=== PATIENT | female | born 1980 | race Caucasian/White ===

== ENCOUNTER 2018-08-31 19:52 | Emergency (ER) | payer MEDICARE, MEDICAID ==
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
[2018-08-31 20:52] LABS: ANION GAP 16.9
[2018-08-31] MEDS ORDERED: Sulfamethoxazole/Trimethoprim 800-160 MG Tab PO ONE (21:07)
== END 2018-08-31 21:14 | disposition home or self-care (01) ==
LOC: DL.ED 19:52
DX: N39.0 Urinary tract infection, site not specified (principal); I12.9 Hypertensive chronic kidney disease with stage 1 through stage 4 chronic kidney disease, or unspecified chronic kidney disease; N18.4 Chronic kidney disease, stage 4 (severe); F32.9 Major depressive disorder, single episode, unspecified; Z88.8 Allergy status to other drugs, medicaments and biological substances; Z91.040 Latex allergy status; Z79.899 Other long term (current) drug therapy
CPT/HCPCS: 36415; 80053; 81001; 81025; 83605; 85025; 87040; 87086; 99284; A9270; 87088; 87186

== ENCOUNTER 2018-10-08 17:39 | Inpatient (IN) | payer MEDICARE, MEDICAID ==
[2018-10-08] MEDS ORDERED: Sodium Chloride 0.9% 1,000 ML IV ONE (19:29)
[2018-10-08 19:44] LABS: ANION GAP 17.2
[2018-10-08] MEDS ORDERED: fentaNYL 100 MCG/2 ML SDV IVPUSH ONE (21:11)
[2018-10-08] MEDS ORDERED: Ondansetron 4 MG/2 ML SDV IV ONE (21:11)
[2018-10-08] MEDS ORDERED: Piperacillin/Tazobactam 3.375 GM in Sodium Chloride 0.9% 100 ML IV ONE (22:04)
[2018-10-08] MEDS: Iopamidol 612 MG/ML 100 ML Bottle IVPUSH ONE ×2 (22:13→22:22)
[2018-10-08] MEDS ORDERED: Acetaminophen 325 MG Tab PO PRN (22:42)
[2018-10-08] MEDS ORDERED: Acetaminophen/oxyCODONE 325-5 MG Tab PO PRN (22:42)
[2018-10-08] MEDS ORDERED: Ondansetron 4 MG/2 ML SDV IVPUSH PRN (22:42)
[2018-10-08] MEDS ORDERED: DIPHENHYDRAMINE 25 MG PO PRN (22:48)
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
[2018-10-08] MEDS ORDERED: Piperacillin/Tazobactam 3.375 GM in Sodium Chloride 0.9% 100 ML IV SCH (23:00)
[2018-10-08] MEDS ORDERED: diphenhydrAMINE 25 MG Tab PO PRN (23:15)
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
[2018-10-09] MEDS ORDERED: Piperacillin/Tazobactam 4.5 GM Vial ONE (03:26)
[2018-10-09] MEDS: Sodium Chloride 0.9% 1,000 ML IV SCH ×2 (03:55→13:37)
[2018-10-09] MEDS: Piperacillin/Tazobactam 2.25 GM in Sodium Chloride 0.9% 50 ML IV SCH ×4 (03:56→20:50)
[2018-10-09] MEDS: Heparin Sodium 5,000 Units/ML Vial SUBCUT SCH ×3 (05:46→21:17)
[2018-10-09 07:01] LABS: ANION GAP 14.8
[2018-10-09] MEDS: Calcitriol 0.25 MCG Cap PO SCH (08:40)
[2018-10-09] MEDS: Sodium Bicarbonate 650 MG Tab PO SCH ×2 (08:40→21:10)
[2018-10-09] MEDS: amLODIPine 5 MG Tab PO SCH (08:40)
[2018-10-09] MEDS: Docusate Sodium 100 MG Cap PO SCH (08:40)
[2018-10-09] MEDS: DULoxetine 30 MG Cap PO SCH (08:41)
[2018-10-09] MEDS: METHYLPHENIDATE 10 MG PO SCH ×3 (08:46→21:16)
--- NOTE | 2018-10-09 09:29 | PCM.PN ---
- General Info Date of Service: 10/09/18 Subjective Update: patient reports that back pain has improved. She inquired whether this pain is related to sciatica, I told her that it wouldn't be expected to improve with antibiotics had it been sciatica pain.patient denied any nausea or vomiting, difficulty breathing. - Review of Systems General: Reports: No Symptoms Pulmonary: Reports: No Symptoms Cardiovascular: Reports: No Symptoms Gastrointestinal: Reports: No Symptoms Genitourinary: Reports: Flank Pain Skin: Reports: No Symptoms Psychiatric: Reports: No Symptoms - Patient Data Vitals - Most Recent: Last Vital Signs Temp 36.9 C 10/09/18 07:20 Pulse 65 10/09/18 07:20 Resp 16 10/09/18 07:20 BP 121/74 10/09/18 08:40 Pulse Ox 99 10/09/18 07:20 Weight - Most Recent: 69.672 kg I&O - Last 24 Hours: Intake & Output 10/08/18 10/09/18 10/09/18 22:59 06:59 14:59 Intake Total 1161 Output Total 750 Balance 411 Lab Results Last 24 Hours: Laboratory Results - last 24 hr 10/08/18 10/08/18 10/08/18 Range/Units 19:05 19:05 19:05 WBC 13.2 H (5.0-10.0) 10^3/uL RBC 4.61 (4.2-5.4) 10^6/uL Hgb 13.9 (12.0-16.0) g/dL Hct 41.3 (37.0-47.0) % MCV 89.6 (80-100) fL MCH 30.2 (27.0-34.0) pg MCHC 33.7 (33.0-35.0) g/dL Plt Count 180 (150-450) 10^3/uL Neut % (Auto) 75.7 H (42.2-75.2) % Lymph % (Auto) 16.7 L (20.5-50.1) % [place] % (Auto) 7.4 (2-8) % Eos % (Auto) 0.1 L (1.0-3.0) % Baso % (Auto) 0.1 (0.0-1.0) % Sodium 133 L (135-145) mmol/L Potassium 4.2 (3.6-5.0) mmol/L Chloride 98 L (101-111) mmol/L Carbon Dioxide 22.0 (21.0-31.0) mmol/L Anion Gap 17.2 BUN 37 H (7-18) mg/dL Creatinine 1.5 H (0.6-1.3) mg/dL Est Cr Clr Drug Dosing 39.12 mL/min Estimated GFR (MDRD) 39 BUN/Creatinine Ratio 24.66 Glucose 81 (74-105) mg/dL Lactic Acid 0.6 (0.5-2.2) mmol/L Calcium 9.4 (8.4-10.2) mg/dl Phosphorus (2.5-4.6) mg/dL Magnesium (1.8-2.5) mg/dL Total Bilirubin 1.1 H (0.2-1.0) mg/dL AST 26 (10-42) IU/L ALT 21 (10-60) IU/L Alkaline Phosphatase 41 L (42-121) IU/L Total Protein 7.8 (6.7-8.2) g/dl Albumin 3.9 (3.2-5.5) g/dl Globulin 3.9 Albumin/Globulin Ratio 1.00 Amylase 47 (28-100) U/L Lipase 36 (22-51) U/L Urine Color (YELLOW) Urine Appearance (CLEAR) Urine pH (5.0-9.0) Ur Specific [place] (1.005-1.030) Urine Protein (NEGATIVE) Urine Glucose (UA) (NEGATIVE) Urine Ketones (NEGATIVE) Urine Occult Blood (NEGATIVE) Urine Nitrite (NEGATIVE) Urine Bilirubin (NEGATIVE) Urine Urobilinogen (0.2-1.0) mg/dL Ur Leukocyte Esterase (NEGATIVE) Urine RBC /HPF Urine WBC (0-5/HPF) /HPF Ur Epithelial Cells /HPF Urine Bacteria (0-FEW/HPF) /HPF 10/08/18 10/09/18 10/09/18 Range/Units 21:58 06:25 06:25 WBC 8.3 (5.0-10.0) 10^3/uL RBC 3.87 L (4.2-5.4) 10^6/uL Hgb 11.7 L D (12.0-16.0) g/dL Hct 35.4 L (37.0-47.0) % MCV 91.5 (80-100) fL MCH 30.2 (27.0-34.0) pg MCHC 33.1 (33.0-35.0) g/dL Plt Count 142 L (150-450) 10^3/uL Neut % (Auto) 55.6 (42.2-75.2) % Lymph % (Auto) 31.8 (20.5-50.1) % [place] % (Auto) 12.1 H (2-8) % Eos % (Auto) 0.4 L (1.0-3.0) % Baso % (Auto) 0.1 (0.0-1.0) % Sodium 135 (135-145) mmol/L Potassium 3.8 (3.6-5.0) mmol/L Chloride 106 (101-111) mmol/L Carbon Dioxide 18.0 L (21.0-31.0) mmol/L Anion Gap 14.8 BUN 39 H (7-18) mg/dL Creatinine 1.6 H (0.6-1.3) mg/dL Est Cr Clr Drug Dosing 36.68 mL/min Estimated GFR (MDRD) 36 BUN/Creatinine Ratio 24.37 Glucose 111 H (74-105) mg/dL Lactic Acid (0.5-2.2) mmol/L Calcium 8.4 (8.4-10.2) mg/dl Phosphorus 3.3 (2.5-4.6) mg/dL Magnesium 1.8 (1.8-2.5) mg/dL Total Bilirubin 0.4 (0.2-1.0) mg/dL AST 18 (10-42) IU/L ALT 16 (10-60) IU/L Alkaline Phosphatase 35 L (42-121) IU/L Total Protein 6.3 L (6.7-8.2) g/dl Albumin 3.1 L (3.2-5.5) g/dl Globulin 3.2 Albumin/Globulin Ratio 0.97 Amylase (28-100) U/L Lipase (22-51) U/L Urine Color Yellow (YELLOW) Urine Appearance Slightly cloudy (CLEAR) Urine pH 7.0 (5.0-9.0) Ur Specific [place] 1.015 (1.005-1.030) Urine Protein 100 H (NEGATIVE) Urine Glucose (UA) Negative (NEGATIVE) Urine Ketones Trace H (NEGATIVE) Urine Occult Blood Large H (NEGATIVE) Urine Nitrite Negative (NEGATIVE) Urine Bilirubin Small H (NEGATIVE) Urine Urobilinogen 0.2 (0.2-1.0) mg/dL Ur Leukocyte Esterase Small H (NEGATIVE) Urine RBC 10-20 H /HPF Urine WBC 50-75 H (0-5/HPF) /HPF Ur Epithelial Cells Moderate H /HPF Urine Bacteria Many H (0-FEW/HPF) /HPF Kervin Results Last 24 Hours: Microbiology 10/08/18 19:05 Anaerobic Blood Culture - Final Blood - Venous Med Orders - Current: Current Medications Acetaminophen (Tylenol) 650 mg PO Q4H PRN PRN Reason: Pain (Mild 1-3)/fever Amlodipine Besylate (Norvasc) 10 mg PO DAILY [facility] Last Admin: 10/09/18 08:40 Dose: 10 mg Calcitriol (Rocaltrol) 0.25 mcg PO DAILY [facility] Last Admin: 10/09/18 08:40 Dose: 0.25 mcg Diphenhydramine HCl (Benadryl) 25 mg PO Q8H PRN PRN Reason: Rash Divalproex Sodium (Depakote Er) 1,250 mg PO BEDTIME [facility] Docusate Sodium (Colace) 100 mg PO DAILY [facility] Last Admin: 10/09/18 08:40 Dose: 100 mg Duloxetine HCl (Cymbalta) 60 mg PO DAILY [facility] Last Admin: 10/09/18 08:41 Dose: 60 mg Ferrous Sulfate (Ferrous Sulfate) 325 mg PO BEDTIME [facility] Heparin Sodium (Porcine) (Heparin Sodium) 5,000 units SUBCUT Q8HR [facility] Last Admin: 10/09/18 05:46 Dose: 5,000 units Sodium Chloride (Normal Saline) 1,000 mls @ 125 mls/hr IV ASDIRECTED [facility] Last Admin: 10/09/18 03:55 Dose: 125 mls/hr Piperacillin Sod/Tazobactam (Sod 2.25 gm/ Sodium Chloride) 50 mls @ 100 mls/hr IV Q6H [facility] Last Admin: 10/09/18 03:56 Dose: 100 mls/hr Ondansetron HCl (Zofran) 4 mg IVPUSH Q4H PRN PRN Reason: Nausea/Vomiting Oxycodone/Acetaminophen (Percocet 325-5 Mg) 1 tab PO Q6H PRN PRN Reason: Pain (moderate 4-6) Patient's Own Medication Methylphenidate 10 Mg 1 each PO TID [facility] Last Admin: 10/09/18 08:46 Dose: 1 each Sodium Bicarbonate (Sodium Bicarbonate) 650 mg PO BID [facility] Last Admin: 10/09/18 08:40 Dose: 650 mg Discontinued Medications Fentanyl (Sublimaze) 50 mcg IVPUSH ONETIME ONE Stop: 10/08/18 21:12 Last Admin: 10/08/18 21:17 Dose: 50 mcg Sodium Chloride (Normal Saline) 1,000 mls @ 150 mls/hr IV .BOLUS ONE Stop: 10/09/18 02:08 Last Admin: 10/08/18 19:47 Dose: 150 mls/hr Piperacillin Sod/Tazobactam (Sod 3.375 gm/ Sodium Chloride) 100 mls @ 200 mls/ hr IV ONETIME ONE Stop: 10/08/18 22:33 Last Admin: 10/08/18 22:16 Dose: 200 mls/hr Piperacillin Sod/Tazobactam (Sod 3.375 gm/ Sodium Chloride) 100 mls @ 200 mls/ hr IV Q6H [facility] Last Admin: 10/09/18 03:06 Dose: Not Given Iopamidol (Isovue-300 (61%)) 100 ml IVPUSH ONETIME ONE Stop: 10/08/18 22:07 Last Admin: 10/08/18 22:22 Dose: 75 ml Non-Formulary Medication (Diphenhydramine [Benadryl]) 25 mg PO ASDIRECTED PRN PRN Reason: Rash Ondansetron HCl (Zofran) 4 mg IV ONETIME ONE Stop: 10/08/18 21:12 Last Admin: 10/08/18 22:16 Dose: 4 mg Piperacillin Sod/Tazobactam Sod (Zosyn) Confirm Administered Dose 4.5 gm .ROUTE .STK-MED ONE Stop: 10/09/18 03:27 Last Admin: 10/09/18 03:56 Dose: Not Given - Problem List Review Problem List Initiated/Reviewed/Updated: Yes - My Orders Last 24 Hours: My Active Orders 10/08/18 22:42 Patient Status [ADT] Routine Oxygen Therapy [RC] PRN Up With Assistance [RC] ASDIRECTED VTE/DVT Education [RC] PER UNIT ROUTINE Vital Signs [RC] Q4H OT Evaluation and Treatment [CONS] Routine PT Evaluation and Treatment [CONS] Routine Acetaminophen [Tylenol] 650 mg PO Q4H PRN Acetaminophen/oxyCODONE [Percocet 325-5 MG] 1 tab PO Q6H PRN Ondansetron [Zofran] 4 mg IVPUSH Q4H PRN Resuscitation Status Routine 10/08/18 22:43 Intake and Output [RC] QSHIFT 10/08/18 23:00 Sodium Chloride 0.9% [Normal Saline] 1,000 ml IV ASDIRECTED 10/08/18 23:15 diphenhydrAMINE [Benadryl] 25 mg PO Q8H PRN 10/09/18 04:00 Piperacillin/Tazobactam [Zosyn] 2.25 gm Sodium Chloride 0.9% [Normal Saline] 50 ml IV Q6H 10/09/18 06:00 Heparin Sodium 5,000 units SUBCUT Q8HR 10/09/18 09:00 Calcitriol [Rocaltrol] 0.25 mcg PO DAILY DULoxetine [Cymbalta] 60 mg PO DAILY Docusate Sodium [Colace] 100 mg PO DAILY Patient's Own Medication [Ptom] 1 each PO TID Sodium Bicarbonate 650 mg PO BID amLODIPine [Norvasc] 10 mg PO DAILY 10/09/18 21:00 Divalproex Sodium [Depakote ER] 1,250 mg PO BEDTIME Ferrous Sulfate 325 mg PO BEDTIME 10/09/18 Breakfast Regular Diet [DIET] - Plan Plan:: Acute pyelonephritis Patient has a recurrent history of recurrent acute pyelonephritis She presented with symptoms concerning for acute pyelonephritis Urine cultures, blood cultures obtained continue patient on zosyn follow up culture results Secondary hyperparathyroidism continue calcitriol CKD the stage III will hydrate following IV contrast will monitor UOP, serum creatinine Hypertension continue amlodipine DVT prophylaxis heparin
[2018-10-09] MEDS ORDERED: Ferrous Sulfate 325 MG Tab PO SCH (21:00)
[2018-10-09] MEDS ORDERED: Divalproex Sodium 250 MG Tab.ER PO SCH (21:00)
[2018-10-10] MEDS: Piperacillin/Tazobactam 2.25 GM in Sodium Chloride 0.9% 50 ML IV SCH ×3 (00:27→11:38)
[2018-10-10] MEDS: Sodium Chloride 0.9% 1,000 ML IV SCH (02:20)
[2018-10-10] MEDS: Heparin Sodium 5,000 Units/ML Vial SUBCUT SCH (05:26)
[2018-10-10] MEDS: METHYLPHENIDATE 10 MG PO SCH (08:55)
[2018-10-10] MEDS: DULoxetine 30 MG Cap PO SCH (08:56)
[2018-10-10] MEDS: Docusate Sodium 100 MG Cap PO SCH (08:56)
[2018-10-10] MEDS: Calcitriol 0.25 MCG Cap PO SCH (08:56)
[2018-10-10] MEDS: amLODIPine 5 MG Tab PO SCH (08:56)
[2018-10-10] MEDS: Sodium Bicarbonate 650 MG Tab PO SCH (08:56)
[2018-10-10 10:08] LABS: ANION GAP 10.2
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
== END 2018-10-10 13:35 | DRG 394 ==
LOC: DL.ED 17:39 → DL.MS 22:37 → UNDOADMIN 22:37 → DL.MS 22:42
PROVIDERS: ADMIT Internal Medicine; ATTEND Internal Medicine
DX: K43.5 Parastomal hernia without obstruction or gangrene (principal); G82.20 Paraplegia, unspecified; N25.81 Secondary hyperparathyroidism of renal origin; N18.4 Chronic kidney disease, stage 4 (severe); E86.0 Dehydration; K59.09 Other constipation; F32.9 Major depressive disorder, single episode, unspecified; M16.11 Unilateral primary osteoarthritis, right hip; I12.9 Hypertensive chronic kidney disease with stage 1 through stage 4 chronic kidney disease, or unspecified chronic kidney disease; Z96.0 Presence of urogenital implants; Z88.5 Allergy status to narcotic agent; Z91.040 Latex allergy status; Z88.8 Allergy status to other drugs, medicaments and biological substances; Z91.018 Allergy to other foods; Z79.899 Other long term (current) drug therapy; Z90.89 Acquired absence of other organs
CPT/HCPCS: 36415; 74178; 80048; 80053; 81001; 82150; 83605; 83690; 83735; 84100; 85025; 87040; 87086; 87088; 87186; 96361; 96365; 96375; 97162-GP; 97165-GO; 99284; 99285-25; A9270-GY; J1644; J2405; J2543; J3010; J7030; J7050; Q9967

== ENCOUNTER → 2018-10-20 | Outpatient (CLI) | payer MEDICARE, MEDICAID ==
[2018-10-20 08:29] LABS: ANION GAP 13.2; CHLORIDE,CL 105 mmol/L (101-111); SODIUM,NA 136 mmol/L (135-145)
== END ==
LOC: DL.LAB 07:42
PROVIDERS: ATTEND Internal Medicine Nephrology
DX: N18.3 Chronic kidney disease, stage 3 (moderate) (principal)
CPT/HCPCS: 36415; 80069; 83970; 85014; 85018

== ENCOUNTER 2019-10-23 11:44 | Emergency (ER) | payer MEDICARE, MEDICAID ==
[2019-10-23] MEDS: Sodium Chloride 0.9% 10 ML Syringe FLUSH PRN (12:05)
[2019-10-23 12:32] LABS: ANION GAP 12.6 mEq/L (7-13)
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
[2019-10-23] MEDS: Sodium Chloride 0.9% 1,000 ML IV ONE (13:24)
--- NOTE | 2019-10-23 13:34 | CT ---
EXAMINATION: Head wo Cont SEX: Female AGE: 39 years CLINICAL HISTORY: 39-year-old lethargic female. "No abnormality" CXR. TECHNIQUE: Volume acquisition of data emergency unenhanced CT scan of the head and brain obtained with the patient lying supine on the Siemens multi slice scanner [place], [place]. All data archived in the PACS system for storage, reformatting axial/sagittal/coronal planes and study. Interpretation: 1. Uniformly thick bony calvarium. Physiologic midline pineal and symmetric choroid plexus calcifications. 2. Mild atrophy pattern with underlying mirror-image normal ventricular system. 3. No supratentorial or posterior fossa mass lesion. 4. No sign of ischemic infarct or cerebral edema. 5. No evidence of acute intracerebral, intraventricular or subarachnoid bleed. 6. No abnormal extracerebral/intracranial epidural or subdural hematoma. 7. Cerebellum and brainstem unremarkable. 8. Symmetric clear pneumatization of the paranasal and mastoid sinuses. No sign of antral mass lesion, mucoperiosteal inflammation or pathologic air-fluid levels. Nasal septum is straight in the midline. Normal TMJs. Conclusion: Negative exam.
== END 2019-10-23 14:33 | disposition home or self-care (01) ==
LOC: DL.ED 11:44
DX: R53.83 Other fatigue (principal); R56.9 Unspecified convulsions; I12.9 Hypertensive chronic kidney disease with stage 1 through stage 4 chronic kidney disease, or unspecified chronic kidney disease; N18.4 Chronic kidney disease, stage 4 (severe); F32.9 Major depressive disorder, single episode, unspecified; Z88.8 Allergy status to other drugs, medicaments and biological substances; Z88.5 Allergy status to narcotic agent; Z91.040 Latex allergy status; Z91.048 Other nonmedicinal substance allergy status; Z79.899 Other long term (current) drug therapy
CPT/HCPCS: 36415; 70450; 71045; 80053; 80305; 81001; 85025; 87086; 87088; 87186; 96360; 99285; J7030

== ENCOUNTER 2019-12-28 18:59 | Emergency (ER) | payer MEDICARE, MEDICAID ==
[2019-12-28] MEDS ORDERED: Ciprofloxacin 500 MG Tab PO ONE (21:14)
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
== END 2019-12-28 21:37 | disposition home or self-care (01) ==
LOC: DL.ED 18:59
DX: N39.0 Urinary tract infection, site not specified (principal); F32.9 Major depressive disorder, single episode, unspecified; N18.4 Chronic kidney disease, stage 4 (severe); Z88.5 Allergy status to narcotic agent; Z91.018 Allergy to other foods; Z88.8 Allergy status to other drugs, medicaments and biological substances; Z79.899 Other long term (current) drug therapy; Z91.040 Latex allergy status
CPT/HCPCS: 81001; 87086; 87088; 87186; 99283; A9270

== ENCOUNTER 2019-12-31 16:53 | Inpatient (IN) | payer MEDICARE, MEDICAID ==
[2019-12-31] MEDS ORDERED: Ondansetron 4 MG/2 ML SDV IVPUSH PRN (18:06)
[2019-12-31] MEDS ORDERED: Acetaminophen 325 MG Tab PO PRN (18:06)
[2019-12-31] MEDS ORDERED: [UNRECOGNIZED DRUG - OTHER] TOP PRN (18:13)
[2019-12-31] MEDS ORDERED: Sodium Chloride 0.65% Nasal Spray 45 ML Bottle NAS PRN (18:13)
[2019-12-31] MEDS ORDERED: Bisacodyl 10 MG Supp RECTAL PRN (18:13)
[2019-12-31] MEDS ORDERED: Polyethylene Glycol 3350 Powder 17 GM Packet PO PRN (18:13)
[2019-12-31] MEDS ORDERED: ZINC OXIDE TOP PRN (18:13)
[2019-12-31] MEDS ORDERED: VITAMIN E TOP PRN (18:13)
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
[2019-12-31] MEDS ORDERED: Cefepime 1 GM in Sodium Chloride 0.9% 50 ML IV SCH (19:30)
[2019-12-31] MEDS: Sodium Chloride 0.9% 1,000 ML IV SCH (19:31)
[2019-12-31] MEDS: HYDROmorphone 1 MG/ML Syringe IVPUSH PRN ×2 (19:38→21:54)
[2019-12-31] MEDS: Acetaminophen/HYDROcodone 325-10 MG Tab PO PRN (19:39)
[2019-12-31] MEDS: Acetaminophen 325 MG Tab PO PRN (21:08)
[2019-12-31] MEDS: Heparin Sodium 5,000 Units/ML Vial SUBCUT SCH (21:10)
[2019-12-31] MEDS: Divalproex Sodium 250 MG Tab.ER PO SCH (21:11)
[2019-12-31] MEDS: Sodium Bicarbonate 650 MG Tab PO SCH (21:12)
[2019-12-31] MEDS: Loratadine 10 MG Tab PO SCH (21:12)
[2019-12-31] MEDS: METHYLPHENIDATE 10 MG PO SCH (21:30)
[2019-12-31] MEDS: CRANBERRY 250 MG PO SCH (21:30)
[2019-12-31] MEDS: DENTA DENT SCH (21:30)
[2019-12-31] MEDS: Cefepime 1 GM in Sodium Chloride 0.9% 50 ML IV SCH (22:15)
[2020-01-01] MEDS: Sodium Chloride 0.9% 1,000 ML IV SCH ×2 (03:45→15:15)
[2020-01-01] MEDS: Heparin Sodium 5,000 Units/ML Vial SUBCUT SCH ×3 (06:18→21:35)
[2020-01-01] MEDS: Acetaminophen 325 MG Tab PO PRN (06:29)
[2020-01-01] MEDS: HYDROmorphone 1 MG/ML Syringe IVPUSH PRN (06:30)
[2020-01-01 07:08] LABS: ANION GAP 12.9 mEq/L (7-13)
[2020-01-01] MEDS: Acetaminophen/HYDROcodone 325-10 MG Tab PO PRN ×2 (07:49→17:01)
[2020-01-01] MEDS ORDERED: NORETHINDRONE ETHIN ESTRADIOL PO SCH (09:00)
[2020-01-01] MEDS ORDERED: Calcitriol 0.25 MCG Cap PO ONE (09:50)
[2020-01-01] MEDS ORDERED: amLODIPine 5 MG Tab PO ONE (09:50)
[2020-01-01] MEDS ORDERED: Furosemide 20 MG Tab PO ONE (09:50)
[2020-01-01] MEDS ORDERED: Sodium Bicarbonate 650 MG Tab PO ONE (09:50)
[2020-01-01] MEDS ORDERED: Docusate Sodium 100 MG Cap PO ONE (09:50)
[2020-01-01] MEDS ORDERED: DULoxetine 30 MG Cap PO ONE (09:50)
[2020-01-01] MEDS ORDERED: Multivitamins, Therapeutic with Minerals Tab PO ONE (09:50)
[2020-01-01] MEDS ORDERED: Cefepime 1 GM in Sodium Chloride 0.9% 50 ML IV ONE (09:50)
[2020-01-01] MEDS ORDERED: HYDROmorphone 0.5 MG/0.5 ML Syringe IVPUSH PRN (10:19)
--- NOTE | 2020-01-01 10:53 | CT ---
PROCEDURE INFORMATION: Exam: CT Abdomen And Pelvis Without Contrast Exam date and time: 01/01/2020 10:31 AM Age: 39 years old Clinical indication: Nausea and vomiting and other: Fever TECHNIQUE: Imaging protocol: Computed tomography of the abdomen and pelvis without contrast. Radiation optimization: All CT scans at this facility use at least one of these dose optimization techniques: automated exposure control; mA and/or kV adjustment per patient size (includes targeted exams where dose is matched to clinical indication); or iterative reconstruction. COMPARISON: CT Abdomen Pelvis w wo Cont 10/08/2018 10:37 PM FINDINGS: Liver: Normal. No mass. Gallbladder and bile ducts: Normal. No calcified stones. No ductal dilation. Pancreas: Normal. No ductal dilation. Spleen: Normal. No splenomegaly. Adrenals: Normal. No mass. Kidneys and ureters: Chronic unchanged left hydronephrosis likely associated with urinary diversion. Chronic unchanged left upper pole and medial mid right renal cortical thinning/scarring. Stomach and bowel: The bowel is unobstructed. The amount of stool retained within the colon is greater than typical but there is no focal bowel wall thickening or pneumatosis intestinalis. Appendix: No evidence of appendicitis. Intraperitoneal space: Unremarkable. No free air. No significant fluid collection. Vasculature: Unremarkable. No abdominal aortic aneurysm. Lymph nodes: Chronic unchanged mildly enlarged retroperitoneal/periaortic lymph nodes measuring up to 9.5 mm on short axis. Bladder: Absent bladder, status post uro ileostomy. Reproductive: Unremarkable as visualized. Bones/joints: Unremarkable. No acute fracture. Soft tissues: Chronic right peristomal hernia containing fat and colon. IMPRESSION: 1. No acute disease or findings suspicious for metastatic disease in the abdomen or pelvis. 2. Chronic incidental findings include right peristomal hernia, left upper and mid medial right renal scarring and unchanged shotty upper retroperitoneal lymph nodes.
--- NOTE | 2020-01-01 11:03 | PCM.PN ---
- General Info Date of Service: 01/01/20 Subjective Update: Today the patient offers no new complaints Still has nausea Still complains of low back pain associated with spasms Dilaudid does help. No fever and no chills - Review of Systems General: Reports: Weakness Gastrointestinal: Reports: Constipation, Nausea, Vomiting Musculoskeletal: Reports: No Symptoms - Patient Data Vitals - Most Recent: Last Vital Signs Temp 38.6 C H 01/01/20 07:00 Pulse 106 H 01/01/20 07:00 Resp 20 01/01/20 07:00 BP 148/76 H 01/01/20 07:00 Pulse Ox 99 01/01/20 07:00 Weight - Most Recent: 76.204 kg I&O - Last 24 Hours: Intake & Output 12/31/19 01/01/20 01/01/20 22:59 06:59 14:59 Intake Total 1040 1950 Output Total 325 400 Balance 715 1550 Lab Results Last 24 Hours: Laboratory Results - last 24 hr 01/01/20 01/01/20 Range/Units 06:13 06:13 WBC 10.4 H (5.0-10.0) 10^3/uL RBC 3.91 L (4.2-5.4) 10^6/uL Hgb 11.7 L D (12.0-16.0) g/dL Hct 35.5 L (37.0-47.0) % MCV 90.8 (80-100) fL MCH 29.9 (27.0-34.0) pg MCHC 33.0 (33.0-35.0) g/dL Plt Count 173 (150-450) 10^3/uL Sodium 134 L (136-145) mmol/L Potassium 3.9 (3.5-5.1) mmol/L Chloride 102 (98-107) mmol/L Carbon Dioxide 23 (21-32) mmol/L Anion Gap 12.9 (7-13) mEq/L BUN 34 H (7-18) mg/dL Creatinine 1.96 H (0.55-1.02) mg/dL Est Cr Clr Drug Dosing 29.65 mL/min Estimated GFR (MDRD) 29 Glucose 138 H (74-99) mg/dL Calcium 8.0 L (8.5-10.1) mg/dL Med Orders - Current: Current Medications Acetaminophen (Tylenol) 650 mg PO Q4H PRN PRN Reason: Pain/Fever Last Admin: 01/01/20 06:29 Dose: 650 mg Documented by: Hydrocodone Bitart/Acetaminophen ([place] 325-10 Mg) 1 tab PO Q4H PRN PRN Reason: Pain (moderate 4-6) Last Admin: 01/01/20 07:49 Dose: 1 tab Documented by: Amlodipine Besylate (Norvasc) 10 mg PO DAILY [facility] Bisacodyl (Dulcolax) 10 mg RECTAL DAILY PRN PRN Reason: Constipation Calcitriol (Rocaltrol) 0.25 mcg PO DAILY [facility] Divalproex Sodium (Depakote Er) 1,250 mg PO BEDTIME [facility] Last Admin: 12/31/19 21:11 Dose: 1,250 mg Documented by: Docusate Sodium (Colace) 100 mg PO DAILY [facility] Duloxetine HCl (Cymbalta) 60 mg PO DAILY [facility] Ferrous Sulfate (Ferrous Sulfate) 325 mg PO WITHDINNER [facility] Furosemide (Lasix) 20 mg PO DAILY [facility] Heparin Sodium (Porcine) (Heparin Sodium) 5,000 units SUBCUT Q8HR [facility] Last Admin: 01/01/20 06:18 Dose: 5,000 units Documented by: Hydromorphone HCl (Dilaudid) 0.5 mg IVPUSH Q4H PRN PRN Reason: Pain (severe 7-10) Sodium Chloride (Normal Saline) 1,000 mls @ 125 mls/hr IV ASDIRECTED [facility] Last Admin: 01/01/20 03:45 Dose: 125 mls/hr Documented by: Cefepime HCl 1 gm/ Sodium (Chloride) 50 mls @ 100 mls/hr IV Q12HR [facility] Last Admin: 12/31/19 22:15 Dose: 100 mls/hr Documented by: Loratadine (Claritin) 10 mg PO BEDTIME [facility] Last Admin: 12/31/19 21:12 Dose: 10 mg Documented by: Multivitamins/Minerals (Vitamins And Minerals) 1 tab PO DAILY [facility] Cranberry 250 Mg (Own Med) 500 mg PO TID [facility] Last Admin: 12/31/19 21:30 Dose: 500 mg Documented by: Methylphenidate 10 (MgOwn Med) 10 mg PO TID [facility] Last Admin: 07/27/20 21:30 Dose: 10 mg Documented by: Denta 5000 PlusOwn (Med) 1 applic DENT BID [facility] Last Admin: 12/31/19 21:30 Dose: 1 applic Documented by: Ondansetron HCl (Zofran) 4 mg IVPUSH Q6H PRN PRN Reason: Nausea/Vomiting Jose 7-7-7Own (Med) 1 each PO DAILY [facility] Polyethylene Glycol (Miralax) 17 gm PO Q2D PRN PRN Reason: Constipation Sodium Bicarbonate (Sodium Bicarbonate) 1,300 mg PO BID [facility] Last Admin: 12/31/19 21:12 Dose: 1,300 mg Documented by: Sodium Chloride ([place] Nasal [place]) 0 ml ANEESH BID PRN PRN Reason: Congestion Discontinued Medications Acetaminophen (Tylenol) 650 mg PO Q4H PRN PRN Reason: Pain (Mild 1-3)/fever Hydromorphone HCl (Dilaudid) 0.5 mg IVPUSH Q2H PRN PRN Reason: Pain (severe 7-10) Last Admin: 01/01/20 06:30 Dose: 0.5 mg Documented by: Cefepime HCl 1 gm/ Sodium (Chloride) 50 mls @ 100 mls/hr IV Q8H [facility] Last Admin: 12/31/19 19:49 Dose: Not Given Documented by: Non-Formulary Medication (Norethindrone-Ethin. Estradiol [Alyacen 1-35 28 Tablet]) 1 each PO DAILY [facility] Non-Formulary Medication (Zinc Oxide/Panthenol/Vitamin E [Balmex Adult Care 11.3% Cream]) 1 applic TOP BID PRN PRN Reason: Rash - Exam General: Alert, Oriented, Cooperative Neck: Supple Lungs: Clear to Auscultation, Normal Respiratory Effort Cardiovascular: Regular Rate, Regular Rhythm Back Exam: Normal Inspection, Full Range of Motion Skin: Warm, Dry, Intact Sepsis Event Note - Evaluation Sepsis Screening Result: Severe Sepsis Risk - Focused Exam Vital Signs: Vital Signs Temp Pulse Resp BP Pulse Ox 01/01/20 07:00 38.6 C H 106 H 20 148/76 H 99 01/01/20 06:36 39.6 C H 01/01/20 01:41 37.1 C 90 16 136/68 98 Date Exam was Performed: 01/01/20 Time Exam was Performed: 11:01 - Problem List Review Problem List Initiated/Reviewed/Updated: Yes - My Orders Last 24 Hours: My Active Orders 12/31/19 Dinner Regular Diet [DIET] 12/31/19 18:06 Patient Status [ADT] Routine Communication Order [RC] Oxygen Therapy [RC] .PRN Up ad Heather [RC] ASDIRECTED Urinary Catheter Assessment [RC] VTE/DVT Education [RC] PER UNIT ROUTINE Vital Signs [RC] 00,04,08,12,16,20 Acetaminophen/HYDROcodone [[place] 325-10 MG] 1 tab PO Q4H PRN Ondansetron [Zofran] 4 mg IVPUSH Q6H PRN Resuscitation Status Routine 12/31/19 18:08 Intake and Output [RC] QSHIFT 12/31/19 18:12 K Pad [Heat Therapy] [OM.PC] Routine 12/31/19 18:13 Acetaminophen [Tylenol] 650 mg PO Q4H PRN Sodium Chloride 0.65% [[place] Nasal [place]] 0 ml ANEESH BID PRN bisacodyL [Dulcolax] 10 mg RECTAL DAILY PRN polyethylene glycoL 3350 [MiraLAX] 17 gm PO Q2D PRN 12/31/19 18:15 Sodium Chloride 0.9% [Normal Saline] 1,000 ml IV ASDIRECTED 12/31/19 19:46 Blood Culture x2 Reflex Set [OM.PC] Stat 12/31/19 21:00 Cefepime [Maxipime] 1 gm Sodium Chloride 0.9% [Normal Saline] 50 ml IV Q12HR Cranberry [Cranberry] 500 mg PO TID Divalproex Sodium [Depakote ER] 1,250 mg PO BEDTIME Loratadine [Claritin] 10 mg PO BEDTIME Methylphenidate [Ritalin] 10 mg PO TID Sodium Bicarbonate 1,300 mg PO BID Sodium Fluoride [Denta 5000 Plus] 1 applic DENT BID 12/31/19 22:00 Heparin Sodium 5,000 units SUBCUT Q8HR 12/31/19 22:09 CULTURE BLOOD [BC] Stat 12/31/19 22:16 CULTURE BLOOD [BC] Stat 01/01/20 09:00 DULoxetine [Cymbalta] 60 mg PO DAILY Docusate Sodium [Colace] 100 mg PO DAILY Furosemide [Lasix] 20 mg PO DAILY Multivitamins/Minerals [Vitamins and Minerals] 1 tab PO DAILY Patient's Own Medication [Ptom] 1 each PO DAILY amLODIPine [Norvasc] 10 mg PO DAILY calcitrioL [Rocaltrol] 0.25 mcg PO DAILY 01/01/20 10:19 HYDROmorphone [Dilaudid] 0.5 mg IVPUSH Q4H PRN 01/01/20 18:00 Ferrous Sulfate 325 mg PO WITHDINNER - Plan Plan:: #. Probable acute pyelonephritis This has not responded to ciprofloxacin as outpatient. # hypertension Continue regular medications #. Seizure disorder Depakote #. Chronic kidney disease Follows with nephrology #. Severe back pain/spasms Likely due to acute pyelonephritis #. History of recurrent urinary tract infection Has had Previous admissions because of UTI Plan: Patient is to having excruciating pain. However appears lethargic today. I will proceed to change Dilaudid to 0.5 mg every 4 hours when necessary Obtain CT scan of abdomen and pelvis to rule out ureteric stone. Continue intravenous Zosyn Obtain repeat CBC and obtain repeat basic metabolic panel
[2020-01-01] MEDS: Cefepime 1 GM in Sodium Chloride 0.9% 50 ML IV SCH ×2 (11:16→21:13)
[2020-01-01] MEDS: CRANBERRY 250 MG PO SCH ×3 (13:41→21:30)
[2020-01-01] MEDS: METHYLPHENIDATE 10 MG PO SCH ×3 (13:41→21:29)
[2020-01-01] MEDS: Docusate Sodium 100 MG Cap PO SCH (14:01)
[2020-01-01] MEDS: amLODIPine 5 MG Tab PO SCH (14:02)
[2020-01-01] MEDS: DULoxetine 30 MG Cap PO SCH (14:02)
[2020-01-01] MEDS: Furosemide 20 MG Tab PO SCH (14:02)
[2020-01-01] MEDS: DASETTA PO SCH (14:03)
[2020-01-01] MEDS: Sodium Bicarbonate 650 MG Tab PO SCH ×2 (14:03→21:21)
[2020-01-01] MEDS: Calcitriol 0.25 MCG Cap PO SCH (14:03)
[2020-01-01] MEDS: Multivitamins, Therapeutic with Minerals Tab PO SCH (14:04)
[2020-01-01] MEDS: DENTA DENT SCH ×2 (14:04→21:31)
[2020-01-01] MEDS: Ferrous Sulfate 325 MG Tab PO SCH (17:01)
[2020-01-01] MEDS: Divalproex Sodium 250 MG Tab.ER PO SCH (21:20)
[2020-01-01] MEDS: Loratadine 10 MG Tab PO SCH (21:21)
[2020-01-02] MEDS: Acetaminophen/HYDROcodone 325-10 MG Tab PO PRN (00:16)
[2020-01-02] MEDS: Sodium Chloride 0.9% 1,000 ML IV SCH (02:19)
[2020-01-02] MEDS: Heparin Sodium 5,000 Units/ML Vial SUBCUT SCH ×3 (05:23→21:43)
[2020-01-02 07:01] LABS: ANION GAP 14.1 mEq/L (7-13)
[2020-01-02] MEDS: Multivitamins, Therapeutic with Minerals Tab PO SCH (08:42)
[2020-01-02] MEDS: DULoxetine 30 MG Cap PO SCH (08:42)
[2020-01-02] MEDS: Furosemide 20 MG Tab PO SCH (08:42)
[2020-01-02] MEDS: Sodium Bicarbonate 650 MG Tab PO SCH ×2 (08:43→21:32)
[2020-01-02] MEDS: Docusate Sodium 100 MG Cap PO SCH (08:43)
[2020-01-02] MEDS: Calcitriol 0.25 MCG Cap PO SCH (08:43)
[2020-01-02] MEDS: amLODIPine 5 MG Tab PO SCH (08:43)
[2020-01-02] MEDS: DASETTA PO SCH (08:44)
[2020-01-02] MEDS: CRANBERRY 250 MG PO SCH ×3 (08:47→21:38)
[2020-01-02] MEDS: Cefepime 1 GM in Sodium Chloride 0.9% 50 ML IV SCH ×2 (08:48→21:28)
[2020-01-02] MEDS: METHYLPHENIDATE 10 MG PO SCH ×3 (08:57→21:40)
[2020-01-02] MEDS: DENTA DENT SCH ×2 (08:59→21:41)
[2020-01-02] MEDS ORDERED: Potassium Chloride 10 MEQ Tab.ER PO ONE (10:33)
--- NOTE | 2020-01-02 10:36 | PCM.PN ---
- General Info Date of Service: 01/02/20 Admission Dx/Problem (Free Text): Admission Diagnosis/Problem Admission Diagnosis/Problem Acute pyelonephritis, uti Subjective Update: Today the patient offers no new complaints Continues to have low back pain with associated spasms. No further fever. No abdominal pain, has mild nausea No vomiting Functional Status: Reports: Pain Controlled, Tolerating Diet - Review of Systems General: Denies: Fever Pulmonary: Denies: Shortness of Breath Cardiovascular: Denies: Chest Pain, Edema Musculoskeletal: Denies: Neck Pain - Patient Data Vitals - Most Recent: Last Vital Signs Temp 98.0 F 01/02/20 07:48 Pulse 77 01/02/20 07:48 Resp 20 01/02/20 07:48 BP 137/82 01/02/20 08:43 Pulse Ox 99 01/02/20 07:48 Weight - Most Recent: 168 lb I&O - Last 24 Hours: Intake & Output 01/01/20 01/02/20 01/02/20 22:59 06:59 14:59 Intake Total 290 3344 160 Output Total 550 950 Balance -260 2394 160 Lab Results Last 24 Hours: Laboratory Results - last 24 hr 01/02/20 01/02/20 Range/Units 06:10 06:10 WBC 6.9 (5.0-10.0) 10^3/uL RBC 3.49 L (4.2-5.4) 10^6/uL Hgb 10.4 L (12.0-16.0) g/dL Hct 31.6 L (37.0-47.0) % MCV 90.5 (80-100) fL MCH 29.8 (27.0-34.0) pg MCHC 32.9 L (33.0-35.0) g/dL Plt Count 160 (150-450) 10^3/uL Sodium 137 (136-145) mmol/L Potassium 3.1 L (3.5-5.1) mmol/L Chloride 106 (98-107) mmol/L Carbon Dioxide 20 L (21-32) mmol/L Anion Gap 14.1 H (7-13) mEq/L BUN 30 H (7-18) mg/dL Creatinine 1.55 H (0.55-1.02) mg/dL Est Cr Clr Drug Dosing 37.50 mL/min Estimated GFR (MDRD) 38 Glucose 145 H (74-99) mg/dL Calcium 7.5 L (8.5-10.1) mg/dL [facility] Results Last 24 Hours: Microbiology 12/31/19 22:16 Aerobic Blood Culture - Preliminary Blood - Venous - Lab Draw NO GROWTH AFTER 1 DAY Anaerobic Blood Culture - Preliminary NO GROWTH AFTER 1 DAY 12/31/19 22:09 Aerobic Blood Culture - Preliminary Blood - Venous NO GROWTH AFTER 1 DAY Anaerobic Blood Culture - Preliminary NO GROWTH AFTER 1 DAY Med Orders - Current: Current Medications Acetaminophen (Tylenol) 650 mg PO Q4H PRN PRN Reason: Pain/Fever Last Admin: 01/01/20 06:29 Dose: 650 mg Documented by: Hydrocodone Bitart/Acetaminophen ([place] 325-10 Mg) 1 tab PO Q4H PRN PRN Reason: Pain (moderate 4-6) Last Admin: 01/02/20 00:16 Dose: 1 tab Documented by: Amlodipine Besylate (Norvasc) 10 mg PO DAILY [facility] Last Admin: 01/02/20 08:43 Dose: 10 mg Documented by: Bisacodyl (Dulcolax) 10 mg RECTAL DAILY PRN PRN Reason: Constipation Calcitriol (Rocaltrol) 0.25 mcg PO DAILY [facility] Last Admin: 01/02/20 08:43 Dose: 0.25 mcg Documented by: Divalproex Sodium (Depakote Er) 1,250 mg PO BEDTIME [facility] Last Admin: 01/01/20 21:20 Dose: 1,250 mg Documented by: Docusate Sodium (Colace) 100 mg PO DAILY [facility] Last Admin: 01/02/20 08:43 Dose: 100 mg Documented by: Duloxetine HCl (Cymbalta) 60 mg PO DAILY [facility] Last Admin: 01/02/20 08:42 Dose: 60 mg Documented by: Ferrous Sulfate (Ferrous Sulfate) 325 mg PO WITHDINNER [facility] Last Admin: 01/01/20 17:01 Dose: 325 mg Documented by: Furosemide (Lasix) 20 mg PO DAILY [facility] Last Admin: 01/02/20 08:42 Dose: 20 mg Documented by: Heparin Sodium (Porcine) (Heparin Sodium) 5,000 units SUBCUT Q8HR [facility] Last Admin: 01/02/20 05:23 Dose: 5,000 units Documented by: Hydromorphone HCl (Dilaudid) 0.5 mg IVPUSH Q4H PRN PRN Reason: Pain (severe 7-10) Sodium Chloride (Normal Saline) 1,000 mls @ 125 mls/hr IV ASDIRECTED [facility] Last Admin: 01/02/20 02:19 Dose: 125 mls/hr Documented by: Cefepime HCl 1 gm/ Sodium (Chloride) 50 mls @ 100 mls/hr IV Q12HR [facility] Last Admin: 01/02/20 08:48 Dose: 100 mls/hr Documented by: Loratadine (Claritin) 10 mg PO BEDTIME [facility] Last Admin: 01/01/20 21:21 Dose: 10 mg Documented by: Multivitamins/Minerals (Vitamins And Minerals) 1 tab PO DAILY [facility] Last Admin: 01/02/20 08:42 Dose: 1 tab Documented by: Cranberry 250 Mg (Own Med) 500 mg PO TID [facility] Last Admin: 01/02/20 08:47 Dose: 500 mg Documented by: Methylphenidate 10 (MgOwn Med) 10 mg PO TID [facility] Last Admin: 01/02/20 08:57 Dose: 10 mg Documented by: Denta 5000 PlusOwn (Med) 1 applic DENT BID [facility] Last Admin: 01/02/20 08:59 Dose: 1 applic Documented by: Ondansetron HCl (Zofran) 4 mg IVPUSH Q6H PRN PRN Reason: Nausea/Vomiting Jose 7-7-7Own (Med) 1 each PO DAILY [facility] Last Admin: 01/02/20 08:44 Dose: 1 each Documented by: Polyethylene Glycol (Miralax) 17 gm PO Q2D PRN PRN Reason: Constipation Potassium Chloride (Klor-Con 10) 40 meq PO ONETIME ONE Stop: 01/02/20 10:34 Sodium Bicarbonate (Sodium Bicarbonate) 1,300 mg PO BID [facility] Last Admin: 01/02/20 08:43 Dose: 1,300 mg Documented by: Sodium Chloride ([place] Nasal [place]) 0 ml ANEESH BID PRN PRN Reason: Congestion Discontinued Medications Acetaminophen (Tylenol) 650 mg PO Q4H PRN PRN Reason: Pain (Mild 1-3)/fever Amlodipine Besylate (Norvasc) 5 mg PO .STK-MED ONE Stop: 01/01/20 09:51 Calcitriol (Rocaltrol) 0.25 mcg PO .STK-MED ONE Stop: 01/01/20 09:51 Docusate Sodium (Colace) 100 mg PO .STK-MED ONE Stop: 01/01/20 09:51 Duloxetine HCl (Cymbalta) 30 mg PO .STK-MED ONE Stop: 01/01/20 09:51 Furosemide (Lasix) 20 mg PO .STK-MED ONE Stop: 01/01/20 09:51 Hydromorphone HCl (Dilaudid) 0.5 mg IVPUSH Q2H PRN PRN Reason: Pain (severe 7-10) Last Admin: 01/01/20 06:30 Dose: 0.5 mg Documented by: Cefepime HCl 1 gm/ Sodium (Chloride) 50 mls @ 100 mls/hr IV Q8H [facility] Last Admin: 12/31/19 19:49 Dose: Not Given Documented by: Cefepime HCl 1 gm/ Sodium (Chloride) 50 mls @ as directed IV .STK-MED ONE Stop: 01/01/20 09:51 Multivitamins/Minerals (Vitamins And Minerals) 1 tab PO .STK-MED ONE Stop: 01/01/20 09:51 Non-Formulary Medication (Norethindrone-Ethin. Estradiol [Alyacen 1-35 28 Tablet]) 1 each PO DAILY [facility] Non-Formulary Medication (Zinc Oxide/Panthenol/Vitamin E [Balmex Adult Care 11.3% Cream]) 1 applic TOP BID PRN PRN Reason: Rash Sodium Bicarbonate (Sodium Bicarbonate) 1 mg PO .STK-MED ONE Stop: 01/01/20 09:51 - Exam General: Alert Neck: Supple Lungs: Clear to Auscultation, Normal Respiratory Effort Cardiovascular: Regular Rate, Regular Rhythm GI/Abdominal Exam: Normal Bowel Sounds, Soft, Non-Tender Extremities: No Pedal Edema Sepsis Event Note - Evaluation Sepsis Screening Result: No Definite Risk - Focused Exam Vital Signs: Vital Signs Temp Pulse Resp BP BP Pulse Ox 01/02/20 08:43 137/82 01/02/20 07:48 98.0 F 77 20 137/82 99 01/02/20 04:00 98.1 F 73 18 110/66 100 01/02/20 00:08 96.3 F L 74 18 155/90 H 99 Date Exam was Performed: 01/02/20 Time Exam was Performed: 10:37 - Problem List & Annotations (1) Pyelonephritis SNOMED Code(s): 53366321 Code(s): N12 - TUBULO-INTERSTITIAL NEPHRITIS, NOT SPCF ACUTE OR CHRONIC Status: Acute Current Visit: No - Problem List Review Problem List Initiated/Reviewed/Updated: Yes - My Orders Last 24 Hours: My Active Orders 01/02/20 10:33 Potassium Chloride [Klor-Con 10] 40 meq PO ONETIME ONE - Plan Plan:: #. Probable acute pyelonephritis with urinary tract infection Urine culture grew E. coli Resistant to Cipro, sensitive to cefazolin, cefepime Continue IV cefepime treatment for 1 more day We will discharge on oral cefazolin # hypertension Treat with Norvasc and Lasix #. Seizure disorder Treatment with Depakote #. Chronic kidney disease New diuretic and sodium bicarbonate #. Severe back pain/spasms Likely due to acute pyelonephritis Will treat Tylenol, [place] #. History of recurrent urinary tract infection Has had Previous admissions because of UTI
[2020-01-02] MEDS: Ferrous Sulfate 325 MG Tab PO SCH (17:25)
[2020-01-02] MEDS: Divalproex Sodium 250 MG Tab.ER PO SCH (21:31)
[2020-01-02] MEDS: Loratadine 10 MG Tab PO SCH (21:32)
[2020-01-03] MEDS: Heparin Sodium 5,000 Units/ML Vial SUBCUT SCH ×3 (06:31→21:33)
[2020-01-03 06:39] LABS: ANION GAP 14.2 mEq/L (7-13)
[2020-01-03] MEDS: Cefepime 1 GM in Sodium Chloride 0.9% 50 ML IV SCH (09:08)
[2020-01-03] MEDS: Sodium Bicarbonate 650 MG Tab PO SCH ×2 (09:09→21:30)
[2020-01-03] MEDS: Calcitriol 0.25 MCG Cap PO SCH (09:09)
[2020-01-03] MEDS: Multivitamins, Therapeutic with Minerals Tab PO SCH (09:09)
[2020-01-03] MEDS: amLODIPine 5 MG Tab PO SCH (09:09)
[2020-01-03] MEDS: Furosemide 20 MG Tab PO SCH (09:09)
[2020-01-03] MEDS: Docusate Sodium 100 MG Cap PO SCH (09:09)
[2020-01-03] MEDS: DULoxetine 30 MG Cap PO SCH (09:09)
[2020-01-03] MEDS: DASETTA PO SCH (09:10)
[2020-01-03] MEDS: CRANBERRY 250 MG PO SCH ×3 (09:11→21:31)
[2020-01-03] MEDS: DENTA DENT SCH ×2 (09:12→21:33)
[2020-01-03] MEDS: METHYLPHENIDATE 10 MG PO SCH ×3 (09:15→21:32)
--- NOTE | 2020-01-03 10:41 | PCM.DCSUM1 ---
Discharge Summary - Hospital Course Free Text/Narrative:: #. Probable acute pyelonephritis with urinary tract infection with sepsis Urine culture grew E. coli Resistant to Cipro, sensitive to cefazolin, cefepime Blood c Continue IV cefepime treatment for 1 more day We will discharge on oral cefazolin # hypertension Treat with Norvasc and Lasix #. Seizure disorder Treatment with Depakote #. Chronic kidney disease New diuretic and sodium bicarbonate #. Severe back pain/spasms Likely due to acute pyelonephritis Will treat Tylenol, [place] #. History of recurrent urinary tract infection Has had Previous admissions because of UTI - Discharge Data Discharge Disposition: Home, Self-Care 01 Condition: Good - Referral to Home Health Primary Care Physician: PCP None - Discharge Diagnosis/Problem(s) (1) Pyelonephritis SNOMED Code(s): 15770221 ICD Code: N12 - TUBULO-INTERSTITIAL NEPHRITIS, NOT SPCF ACUTE OR CHRONIC Status: Acute Current Visit: No (2) MAVIS (acute kidney injury) SNOMED Code(s): 52321700, 80458801 ICD Code: N17.9 - ACUTE KIDNEY FAILURE, UNSPECIFIED Status: Acute Current Visit: Yes (3) Seizures SNOMED Code(s): 21533279 ICD Code: R56.9 - UNSPECIFIED CONVULSIONS Status: Acute Current Visit: No (4) UTI, Urinary tract infectious disease SNOMED Code(s): 72894512 ICD Code: N39.0 - URINARY TRACT INFECTION, SITE NOT SPECIFIED Status: Acute Priority: High Current Visit: No (5) Sepsis SNOMED Code(s): 08044157 ICD Code: A41.9 - SEPSIS, UNSPECIFIED ORGANISM Status: Acute Current Visit: Yes - Discharge Plan *PRESCRIPTION DRUG MONITORING PROGRAM REVIEWED*: Not Applicable *COPY OF PRESCRIPTION DRUG MONITORING REPORT IN PATIENT AUTUMN: Not Applicable Prescriptions/Med Rec: Cefepime [Maxipime] 1 gm IV .Q24H #10 vial Home Medications: Home Meds Bisacodyl [Biscolax] 10 mg RC DAILY PRN 05/27/18 [History] Cetirizine [ZyrTEC] 10 mg PO BEDTIME 05/27/18 [History] Cranberry 500 mg PO TID 05/27/18 [History] DULoxetine [Cymbalta] 60 mg PO DAILY 05/27/18 [History] Divalproex Sodium [Divalproex Sodium ER] 1,250 mg PO BEDTIME 05/27/18 [History] Docusate Sodium 100 mg PO DAILY 05/27/18 [History] Ferrous Sulfate 325 mg PO WITHDINNER 05/27/18 [History] Furosemide 20 mg PO DAILY 05/27/18 [History] Methylphenidate [Ritalin] 10 mg PO TID 05/27/18 [History] Norethindrone-Ethin. Estradiol [Alyacen 1-35 28 Tablet] 1 each PO DAILY 05/27/18 [History] Sodium Bicarbonate 1,300 mg PO BID 05/27/18 [History] Sodium Chloride [Babb] 2 spray NS BID PRN 05/27/18 [History] calcitrioL [Rocaltrol] 0.25 mcg PO DAILY 05/27/18 [History] polyethylene glycoL 3350 [MiraLAX] 17 gm PO Q2D PRN 05/27/18 [History] amLODIPine [Norvasc] 10 mg PO DAILY 10/23/19 [History] Acetaminophen [Tylenol] 650 mg PO Q4H PRN 12/31/19 [History] Multivitamin with Minerals [Multivitamins with Minerals] 1 tab PO WITHDINNER 12/31/19 [History] Sodium Fluoride [Denta 5000 Plus] 1 applic DENT BID 12/31/19 [History] Zinc Oxide/Panthenol/Vitamin E [Balmex Adult Care 11.3% Cream] 1 applic TOP BID PRN 12/31/19 [History] traMADol [Ultram] 50 mg PO Q6H 12/31/19 [History] Cefepime [Maxipime] 1 gm IV .Q24H #10 vial 01/03/20 [Rx] Patient's Own Medication [Ptom] 1 each PO DAILY each 01/03/20 [Rx] - Patient Data Vitals - Most Recent: Last Vital Signs Temp 97.8 F 01/03/20 07:43 Pulse 80 01/03/20 07:43 Resp 20 01/03/20 07:43 BP 121/82 01/03/20 09:09 Pulse Ox 100 01/03/20 07:43 Weight - Most Recent: 168 lb I&O - Last 24 hours: Intake & Output 01/02/20 01/03/20 01/03/20 22:59 06:59 14:59 Intake Total 1070 1175 Output Total 650 1175 Balance 420 0 Lab Results - Last 24 hrs: Laboratory Results - last 24 hr 01/03/20 01/03/20 Range/Units 06:16 06:16 WBC 6.3 (5.0-10.0) 10^3/uL RBC 3.86 L (4.2-5.4) 10^6/uL Hgb 11.5 L (12.0-16.0) g/dL Hct 35.2 L (37.0-47.0) % MCV 91.2 (80-100) fL MCH 29.8 (27.0-34.0) pg MCHC 32.7 L (33.0-35.0) g/dL Plt Count 202 (150-450) 10^3/uL Neut % (Auto) 41.0 L (42.2-75.2) % Lymph % (Auto) 39.5 (20.5-50.1) % [place] % (Auto) 8.3 H (2-8) % Eos % (Auto) 10.9 H (1.0-3.0) % Baso % (Auto) 0.3 (0.0-1.0) % Sodium 139 (136-145) mmol/L Potassium 4.2 (3.5-5.1) mmol/L Chloride 109 H (98-107) mmol/L Carbon Dioxide 20 L (21-32) mmol/L Anion Gap 14.2 H (7-13) mEq/L BUN 28 H (7-18) mg/dL Creatinine 1.49 H (0.55-1.02) mg/dL Est Cr Clr Drug Dosing 39.01 mL/min Estimated GFR (MDRD) 39 Glucose 99 (74-99) mg/dL Calcium 8.1 L (8.5-10.1) mg/dL [facility] Results - Last 24 hrs: Microbiology 12/31/19 22:16 Aerobic Blood Culture - Preliminary Blood - Venous - Lab Draw Anaerobic Blood Culture - Preliminary NO GROWTH AFTER 2 DAYS 12/31/19 22:09 Aerobic Blood Culture - Preliminary Blood - Venous NO GROWTH AFTER 2 DAYS Anaerobic Blood Culture - Preliminary NO GROWTH AFTER 2 DAYS Med Orders - Current: Current Medications Acetaminophen (Tylenol) 650 mg PO Q4H PRN PRN Reason: Pain/Fever Last Admin: 01/01/20 06:29 Dose: 650 mg Documented by: Hydrocodone Bitart/Acetaminophen ([place] 325-10 Mg) 1 tab PO Q4H PRN PRN Reason: Pain (moderate 4-6) Last Admin: 01/02/20 00:16 Dose: 1 tab Documented by: Amlodipine Besylate (Norvasc) 10 mg PO DAILY [facility] Last Admin: 01/03/20 09:09 Dose: 10 mg Documented by: Bisacodyl (Dulcolax) 10 mg RECTAL DAILY PRN PRN Reason: Constipation Calcitriol (Rocaltrol) 0.25 mcg PO DAILY [facility] Last Admin: 01/03/20 09:09 Dose: 0.25 mcg Documented by: Divalproex Sodium (Depakote Er) 1,250 mg PO BEDTIME [facility] Last Admin: 01/02/20 21:31 Dose: 1,250 mg Documented by: Docusate Sodium (Colace) 100 mg PO DAILY [facility] Last Admin: 01/03/20 09:09 Dose: 100 mg Documented by: Duloxetine HCl (Cymbalta) 60 mg PO DAILY [facility] Last Admin: 01/03/20 09:09 Dose: 60 mg Documented by: Ferrous Sulfate (Ferrous Sulfate) 325 mg PO WITHDINNER [facility] Last Admin: 01/02/20 17:25 Dose: 325 mg Documented by: Furosemide (Lasix) 20 mg PO DAILY [facility] Last Admin: 01/03/20 09:09 Dose: 20 mg Documented by: Heparin Sodium (Porcine) (Heparin Sodium) 5,000 units SUBCUT Q8HR [facility] Last Admin: 01/03/20 06:31 Dose: Not Given Documented by: Hydromorphone HCl (Dilaudid) 0.5 mg IVPUSH Q4H PRN PRN Reason: Pain (severe 7-10) Cefepime HCl 1 gm/ Sodium (Chloride) 50 mls @ 100 mls/hr IV Q12HR [facility] Last Admin: 01/03/20 09:08 Dose: 100 mls/hr Documented by: Loratadine (Claritin) 10 mg PO BEDTIME [facility] Last Admin: 01/02/20 21:32 Dose: 10 mg Documented by: Multivitamins/Minerals (Vitamins And Minerals) 1 tab PO DAILY [facility] Last Admin: 01/03/20 09:09 Dose: 1 tab Documented by: Cranberry 250 Mg (Own Med) 500 mg PO TID [facility] Last Admin: 01/03/20 09:11 Dose: 500 mg Documented by: Methylphenidate 10 (MgOwn Med) 10 mg PO TID [facility] Last Admin: 01/03/20 09:15 Dose: 10 mg Documented by: Denta 5000 PlusOwn (Med) 1 applic DENT BID [facility] Last Admin: 01/03/20 09:12 Dose: Not Given Documented by: Ondansetron HCl (Zofran) 4 mg IVPUSH Q6H PRN PRN Reason: Nausea/Vomiting Last Admin: 01/02/20 18:35 Dose: 4 mg Documented by: Jose 7-7-7Own (Med) 1 each PO DAILY [facility] Last Admin: 01/03/20 09:10 Dose: 1 each Documented by: Polyethylene Glycol (Miralax) 17 gm PO Q2D PRN PRN Reason: Constipation Sodium Bicarbonate (Sodium Bicarbonate) 1,300 mg PO BID [facility] Last Admin: 01/03/20 09:09 Dose: 1,300 mg Documented by: Sodium Chloride (Babb Nasal [place]) 0 ml ANEESH BID PRN PRN Reason: Congestion Discontinued Medications Acetaminophen (Tylenol) 650 mg PO Q4H PRN PRN Reason: Pain (Mild 1-3)/fever Amlodipine Besylate (Norvasc) 5 mg PO .STK-MED ONE Stop: 01/01/20 09:51 Calcitriol (Rocaltrol) 0.25 mcg PO .STK-MED ONE Stop: 01/01/20 09:51 Docusate Sodium (Colace) 100 mg PO .STK-MED ONE Stop: 01/01/20 09:51 Duloxetine HCl (Cymbalta) 30 mg PO .STK-MED ONE Stop: 01/01/20 09:51 Furosemide (Lasix) 20 mg PO .STK-MED ONE Stop: 01/01/20 09:51 Hydromorphone HCl (Dilaudid) 0.5 mg IVPUSH Q2H PRN PRN Reason: Pain (severe 7-10) Last Admin: 01/01/20 06:30 Dose: 0.5 mg Documented by: Sodium Chloride (Normal Saline) 1,000 mls @ 125 mls/hr IV ASDIRECTED [facility] Last Infusion: 01/02/20 11:01 Dose: Infused Documented by: Cefepime HCl 1 gm/ Sodium (Chloride) 50 mls @ 100 mls/hr IV Q8H [facility] Last Admin: 12/31/19 19:49 Dose: Not Given Documented by: Cefepime HCl 1 gm/ Sodium (Chloride) 50 mls @ as directed IV .STK-MED ONE Stop: 01/01/20 09:51 Multivitamins/Minerals (Vitamins And Minerals) 1 tab PO .STK-MED ONE Stop: 01/01/20 09:51 Non-Formulary Medication (Norethindrone-Ethin. Estradiol [Alyacen 1-35 28 Tablet]) 1 each PO DAILY [facility] Non-Formulary Medication (Zinc Oxide/Panthenol/Vitamin E [Balmex Adult Care 11.3% Cream]) 1 applic TOP BID PRN PRN Reason: Rash Potassium Chloride (Klor-Con 10) 40 meq PO ONETIME ONE Stop: 01/02/20 10:34 Last Admin: 01/02/20 12:17 Dose: 40 meq Documented by: Sodium Bicarbonate (Sodium Bicarbonate) 1 mg PO .STK-MED ONE Stop: 01/01/20 09:51
--- NOTE | 2020-01-03 10:56 | PCM.PN ---
- General Info Date of Service: 01/03/20 Admission Dx/Problem (Free Text): Admission Diagnosis/Problem Admission Diagnosis/Problem Acute pyelonephritis, uti Subjective Update: no more fever back pain is improved No abdominal pain good uo in urostomy bag No vomiting Functional Status: Reports: Pain Controlled, Tolerating Diet - Review of Systems General: Denies: Fever Pulmonary: Denies: Shortness of Breath Cardiovascular: Denies: Chest Pain, Edema Gastrointestinal: Denies: Abdominal Pain Neurological: Denies: Confusion - Patient Data Vitals - Most Recent: Last Vital Signs Temp 97.8 F 01/03/20 07:43 Pulse 80 01/03/20 07:43 Resp 20 01/03/20 07:43 BP 121/82 01/03/20 09:09 Pulse Ox 100 01/03/20 07:43 Weight - Most Recent: 168 lb I&O - Last 24 Hours: Intake & Output 01/02/20 01/03/20 01/03/20 22:59 06:59 14:59 Intake Total 1070 1175 Output Total 650 1175 Balance 420 0 Lab Results Last 24 Hours: Laboratory Results - last 24 hr 01/03/20 01/03/20 Range/Units 06:16 06:16 WBC 6.3 (5.0-10.0) 10^3/uL RBC 3.86 L (4.2-5.4) 10^6/uL Hgb 11.5 L (12.0-16.0) g/dL Hct 35.2 L (37.0-47.0) % MCV 91.2 (80-100) fL MCH 29.8 (27.0-34.0) pg MCHC 32.7 L (33.0-35.0) g/dL Plt Count 202 (150-450) 10^3/uL Neut % (Auto) 41.0 L (42.2-75.2) % Lymph % (Auto) 39.5 (20.5-50.1) % [place] % (Auto) 8.3 H (2-8) % Eos % (Auto) 10.9 H (1.0-3.0) % Baso % (Auto) 0.3 (0.0-1.0) % Sodium 139 (136-145) mmol/L Potassium 4.2 (3.5-5.1) mmol/L Chloride 109 H (98-107) mmol/L Carbon Dioxide 20 L (21-32) mmol/L Anion Gap 14.2 H (7-13) mEq/L BUN 28 H (7-18) mg/dL Creatinine 1.49 H (0.55-1.02) mg/dL Est Cr Clr Drug Dosing 39.01 mL/min Estimated GFR (MDRD) 39 Glucose 99 (74-99) mg/dL Calcium 8.1 L (8.5-10.1) mg/dL [place] Results Last 24 Hours: Microbiology 12/31/19 22:16 Aerobic Blood Culture - Preliminary Blood - Venous - Lab Draw Anaerobic Blood Culture - Preliminary NO GROWTH AFTER 2 DAYS 12/31/19 22:09 Aerobic Blood Culture - Preliminary Blood - Venous NO GROWTH AFTER 2 DAYS Anaerobic Blood Culture - Preliminary NO GROWTH AFTER 2 DAYS Med Orders - Current: Current Medications Acetaminophen (Tylenol) 650 mg PO Q4H PRN PRN Reason: Pain/Fever Last Admin: 01/01/20 06:29 Dose: 650 mg Documented by: Hydrocodone Bitart/Acetaminophen ([place] 325-10 Mg) 1 tab PO Q4H PRN PRN Reason: Pain (moderate 4-6) Last Admin: 01/02/20 00:16 Dose: 1 tab Documented by: Amlodipine Besylate (Norvasc) 10 mg PO DAILY [facility] Last Admin: 01/03/20 09:09 Dose: 10 mg Documented by: Bisacodyl (Dulcolax) 10 mg RECTAL DAILY PRN PRN Reason: Constipation Calcitriol (Rocaltrol) 0.25 mcg PO DAILY [facility] Last Admin: 01/03/20 09:09 Dose: 0.25 mcg Documented by: Divalproex Sodium (Depakote Er) 1,250 mg PO BEDTIME [facility] Last Admin: 01/02/20 21:31 Dose: 1,250 mg Documented by: Docusate Sodium (Colace) 100 mg PO DAILY [facility] Last Admin: 01/03/20 09:09 Dose: 100 mg Documented by: Duloxetine HCl (Cymbalta) 60 mg PO DAILY [facility] Last Admin: 01/03/20 09:09 Dose: 60 mg Documented by: Ferrous Sulfate (Ferrous Sulfate) 325 mg PO WITHDINNER [facility] Last Admin: 01/02/20 17:25 Dose: 325 mg Documented by: Furosemide (Lasix) 20 mg PO DAILY [facility] Last Admin: 01/03/20 09:09 Dose: 20 mg Documented by: Heparin Sodium (Porcine) (Heparin Sodium) 5,000 units SUBCUT Q8HR [facility] Last Admin: 01/03/20 06:31 Dose: Not Given Documented by: Hydromorphone HCl (Dilaudid) 0.5 mg IVPUSH Q4H PRN PRN Reason: Pain (severe 7-10) Cefepime HCl 1 gm/ Sodium (Chloride) 50 mls @ 100 mls/hr IV DAILY [facility] Loratadine (Claritin) 10 mg PO BEDTIME [facility] Last Admin: 01/02/20 21:32 Dose: 10 mg Documented by: Multivitamins/Minerals (Vitamins And Minerals) 1 tab PO DAILY [facility] Last Admin: 01/03/20 09:09 Dose: 1 tab Documented by: Cranberry 250 Mg (Own Med) 500 mg PO TID [facility] Last Admin: 01/03/20 09:11 Dose: 500 mg Documented by: Methylphenidate 10 (MgOwn Med) 10 mg PO TID [facility] Last Admin: 01/03/20 09:15 Dose: 10 mg Documented by: Denta 5000 PlusOwn (Med) 1 applic DENT BID [facility] Last Admin: 01/03/20 09:12 Dose: Not Given Documented by: Ondansetron HCl (Zofran) 4 mg IVPUSH Q6H PRN PRN Reason: Nausea/Vomiting Last Admin: 01/02/20 18:35 Dose: 4 mg Documented by: Jose 7-7-7Own (Med) 1 each PO DAILY [facility] Last Admin: 01/03/20 09:10 Dose: 1 each Documented by: Polyethylene Glycol (Miralax) 17 gm PO Q2D PRN PRN Reason: Constipation Sodium Bicarbonate (Sodium Bicarbonate) 1,300 mg PO BID [facility] Last Admin: 01/03/20 09:09 Dose: 1,300 mg Documented by: Sodium Chloride ([place] Nasal [place]) 0 ml ANEESH BID PRN PRN Reason: Congestion Vancomycin HCl (Pharmacy To Dose - Vancomycin) 1 dose .XX ASDIRECTED [facility] Discontinued Medications Acetaminophen (Tylenol) 650 mg PO Q4H PRN PRN Reason: Pain (Mild 1-3)/fever Amlodipine Besylate (Norvasc) 5 mg PO .STK-MED ONE Stop: 01/01/20 09:51 Calcitriol (Rocaltrol) 0.25 mcg PO .STK-MED ONE Stop: 01/01/20 09:51 Docusate Sodium (Colace) 100 mg PO .STK-MED ONE Stop: 01/01/20 09:51 Duloxetine HCl (Cymbalta) 30 mg PO .STK-MED ONE Stop: 01/01/20 09:51 Furosemide (Lasix) 20 mg PO .STK-MED ONE Stop: 01/01/20 09:51 Hydromorphone HCl (Dilaudid) 0.5 mg IVPUSH Q2H PRN PRN Reason: Pain (severe 7-10) Last Admin: 01/01/20 06:30 Dose: 0.5 mg Documented by: Sodium Chloride (Normal Saline) 1,000 mls @ 125 mls/hr IV ASDIRECTED [facility] Last Infusion: 01/02/20 11:01 Dose: Infused Documented by: Cefepime HCl 1 gm/ Sodium (Chloride) 50 mls @ 100 mls/hr IV Q8H [facility] Last Admin: 12/31/19 19:49 Dose: Not Given Documented by: Cefepime HCl 1 gm/ Sodium (Chloride) 50 mls @ 100 mls/hr IV Q12HR [facility] Last Infusion: 01/03/20 10:48 Dose: Infused Documented by: Cefepime HCl 1 gm/ Sodium (Chloride) 50 mls @ as directed IV .STK-MED ONE Stop: 01/01/20 09:51 Multivitamins/Minerals (Vitamins And Minerals) 1 tab PO .STK-MED ONE Stop: 01/01/20 09:51 Non-Formulary Medication (Norethindrone-Ethin. Estradiol [[place] 1-35 28 Tablet]) 1 each PO DAILY [facility] Non-Formulary Medication (Zinc Oxide/Panthenol/Vitamin E [Balmex Adult Care 11.3% Cream]) 1 applic TOP BID PRN PRN Reason: Rash Potassium Chloride (Klor-Con 10) 40 meq PO ONETIME ONE Stop: 01/02/20 10:34 Last Admin: 01/02/20 12:17 Dose: 40 meq Documented by: Sodium Bicarbonate (Sodium Bicarbonate) 1 mg PO .STK-MED ONE Stop: 01/01/20 09:51 - Exam General: Alert, Oriented Neck: Supple Lungs: Clear to Auscultation, Normal Respiratory Effort Cardiovascular: Regular Rate, Regular Rhythm GI/Abdominal Exam: Normal Bowel Sounds, Soft, Other (urostomy with clear urine) Extremities: No Pedal Edema Sepsis Event Note - Evaluation Sepsis Screening Result: No Definite Risk - Focused Exam Vital Signs: Vital Signs Temp Pulse Resp BP BP Pulse Ox 01/03/20 09:09 121/82 01/03/20 07:43 97.8 F 80 20 121/82 100 Date Exam was Performed: 01/03/20 Time Exam was Performed: 10:51 - Problem List & Annotations (1) Pyelonephritis SNOMED Code(s): 61055431 Code(s): N12 - TUBULO-INTERSTITIAL NEPHRITIS, NOT SPCF ACUTE OR CHRONIC Status: Acute Current Visit: No (2) MAVIS (acute kidney injury) SNOMED Code(s): 27111014, 13524597 Code(s): N17.9 - ACUTE KIDNEY FAILURE, UNSPECIFIED Status: Acute Current Visit: Yes (3) Seizures SNOMED Code(s): 07249869 Code(s): R56.9 - UNSPECIFIED CONVULSIONS Status: Acute Current Visit: No (4) UTI, Urinary tract infectious disease SNOMED Code(s): 09181103 Code(s): N39.0 - URINARY TRACT INFECTION, SITE NOT SPECIFIED Status: Acute Priority: High Current Visit: No (5) Sepsis SNOMED Code(s): 49421660 Code(s): A41.9 - SEPSIS, UNSPECIFIED ORGANISM Status: Acute Current V isit: Yes - Problem List Review Problem List Initiated/Reviewed/Updated: Yes - My Orders Last 24 Hours: My Active Orders 01/03/20 10:39 Ready for Discharge [RC] PER UNIT ROUTINE 01/03/20 11:00 Pharmacy to Dose - Vancomycin 1 dose .XX ASDIRECTED 01/04/20 09:00 Cefepime [Maxipime] 1 gm Sodium Chloride 0.9% [Normal Saline] 50 ml IV DAILY - Plan Plan:: #. Probable acute pyelonephritis with complicated urinary tract infection with urostomy Urine culture grew E. coli Resistant to Cipro, sensitive to cefazolin, cefepime Continue IV cefepime treatment Blood cx: gram positive in clumps will await ID and sensitivity start Vanc # hypertension Treat with Norvasc and Lasix #. Seizure disorder Treatment with Depakote #. Chronic kidney disease cont Lasix and sodium bicarbonate #. Severe back pain/spasms Likely due to acute pyelonephritis Will treat with Tylenol, [place]
[2020-01-03] MEDS ORDERED: Lidocaine 2% Jelly 5 ML Tube TOP PRN (15:28)
[2020-01-03] MEDS ORDERED: Lidocaine/Prilocaine 2.5-2.5% Crm 5 GM Tube TOP PRN (15:40)
[2020-01-03] MEDS: Ferrous Sulfate 325 MG Tab PO SCH (17:53)
[2020-01-03] MEDS: Loratadine 10 MG Tab PO SCH (21:30)
[2020-01-03] MEDS: Divalproex Sodium 250 MG Tab.ER PO SCH (21:31)
[2020-01-04] MEDS: Heparin Sodium 5,000 Units/ML Vial SUBCUT SCH (06:35)
[2020-01-04] MEDS ORDERED: Cefepime 1 GM in Sodium Chloride 0.9% 50 ML IV SCH (09:00)
--- NOTE | 2020-01-04 09:13 | PCM.DCSUM1 ---
Discharge Summary - Hospital Course Free Text/Narrative:: 39-year-old lady presented with the back pain. #. Probable acute pyelonephritis with complicated urinary tract infection with urostomy Urine culture grew E. coli Resistant to Cipro, sensitive to cefazolin, cefepime Was treated with IV cefepime We'll discharge on Keflex Blood cx: gram positive in clumps, micrococcus This is likely contaminant Repeat blood culture on 03 January Follow this result as an outpatient # hypertension Treat with Norvasc and Lasix #. Seizure disorder Treatment with Depakote #. Chronic kidney disease cont Lasix and sodium bicarbonate Diagnosis: Stroke: No - Discharge Data Discharge Date: 01/04/20 Discharge Disposition: Home, Self-Care 01 Condition: Good - Referral to Home Health Primary Care Physician: PCP None - Discharge Diagnosis/Problem(s) (1) Pyelonephritis SNOMED Code(s): 35714255 ICD Code: N12 - TUBULO-INTERSTITIAL NEPHRITIS, NOT SPCF ACUTE OR CHRONIC Status: Acute Current Visit: No (2) MAVIS (acute kidney injury) SNOMED Code(s): 63399924, 58121674 ICD Code: N17.9 - ACUTE KIDNEY FAILURE, UNSPECIFIED Status: Acute Current Visit: Yes (3) Seizures SNOMED Code(s): 97406288 ICD Code: R56.9 - UNSPECIFIED CONVULSIONS Status: Acute Current Visit: No (4) UTI, Urinary tract infectious disease SNOMED Code(s): 35894814 ICD Code: N39.0 - URINARY TRACT INFECTION, SITE NOT SPECIFIED Status: Acute Priority: High Current Visit: No - Patient Instructions Diet: Usual Diet as Tolerated Activity: As Tolerated - Discharge Plan *PRESCRIPTION DRUG MONITORING PROGRAM REVIEWED*: Not Applicable *COPY OF PRESCRIPTION DRUG MONITORING REPORT IN PATIENT AUTUMN: Not Applicable Prescriptions/Med Rec: cephALEXin [Keflex] 500 mg PO TID #21 cap Home Medications: Home Meds Bisacodyl [Biscolax] 10 mg RC DAILY PRN 05/27/18 [History] Cetirizine [ZyrTEC] 10 mg PO BEDTIME 05/27/18 [History] Cranberry 500 mg PO TID 05/27/18 [History] DULoxetine [Cymbalta] 60 mg PO DAILY 05/27/18 [History] Divalproex Sodium [Divalproex Sodium ER] 1,250 mg PO BEDTIME 05/27/18 [History] Docusate Sodium 100 mg PO DAILY 05/27/18 [History] Ferrous Sulfate 325 mg PO WITHDINNER 05/27/18 [History] Furosemide 20 mg PO DAILY 05/27/18 [History] Methylphenidate [Ritalin] 10 mg PO TID 05/27/18 [History] Norethindrone-Ethin. Estradiol [Alyacen 1-35 28 Tablet] 1 each PO DAILY 05/27/18 [History] Sodium Bicarbonate 1,300 mg PO BID 05/27/18 [History] Sodium Chloride [[place]] 2 spray NS BID PRN 05/27/18 [History] calcitrioL [Rocaltrol] 0.25 mcg PO DAILY 05/27/18 [History] polyethylene glycoL 3350 [MiraLAX] 17 gm PO Q2D PRN 05/27/18 [History] amLODIPine [Norvasc] 10 mg PO DAILY 10/23/19 [History] Acetaminophen [Tylenol] 650 mg PO Q4H PRN 12/31/19 [History] Multivitamin with Minerals [Multivitamins with Minerals] 1 tab PO WITHDINNER 12/31/19 [History] Sodium Fluoride [Denta 5000 Plus] 1 applic DENT BID 12/31/19 [History] Zinc Oxide/Panthenol/Vitamin E [Balmex Adult Care 11.3% Cream] 1 applic TOP BID PRN 12/31/19 [History] traMADol [Ultram] 50 mg PO Q6H 12/31/19 [History] Patient's Own Medication [Ptom] 1 each PO DAILY each 01/03/20 [Rx] cephALEXin [Keflex] 500 mg PO TID #21 cap 01/04/20 [Rx] Oxygen Therapy Mode: Room Air - Discharge Summary/Plan Comment DC Time >30 min.: No - General Info Date of Service: 01/04/20 Subjective Update: no more fever back pain is improved No abdominal pain, no vomiting, tolerating food good uo in urostomy bag Functional Status: Reports: Pain Controlled, Tolerating Diet - Review of Systems General: Denies: Fever Pulmonary: Denies: Shortness of Breath Cardiovascular: Denies: Chest Pain, Edema Gastrointestinal: Denies: Abdominal Pain Genitourinary: Denies: Hematuria - Patient Data Vitals - Most Recent: Last Vital Signs Temp 97.6 F 01/04/20 07:52 Pulse 82 01/04/20 07:52 Resp 20 01/04/20 07:52 BP 124/84 01/04/20 07:52 Pulse Ox 100 01/04/20 07:52 Weight - Most Recent: 168 lb I&O - Last 24 hours: Intake & Output 01/03/20 01/04/20 01/04/20 22:59 06:59 14:59 Intake Total 500 125 Output Total 1375 825 Balance -875 -700 [place] Results - Last 24 hrs: Microbiology 12/31/19 22:16 Aerobic Blood Culture - Final Blood - Venous - Lab Draw Micrococcus Species Anaerobic Blood Culture - Preliminary NO GROWTH AFTER 3 DAYS 12/31/19 22:09 Aerobic Blood Culture - Preliminary Blood - Venous NO GROWTH AFTER 3 DAYS Anaerobic Blood Culture - Preliminary NO GROWTH AFTER 3 DAYS Med Orders - Current: Current Medications Acetaminophen (Tylenol) 650 mg PO Q4H PRN PRN Reason: Pain/Fever Last Admin: 01/01/20 06:29 Dose: 650 mg Documented by: Hydrocodone Bitart/Acetaminophen ([place] 325-10 Mg) 1 tab PO Q4H PRN PRN Reason: Pain (moderate 4-6) Last Admin: 01/02/20 00:16 Dose: 1 tab Documented by: Amlodipine Besylate (Norvasc) 10 mg PO DAILY [facility] Last Admin: 01/03/20 09:09 Dose: 10 mg Documented by: Bisacodyl (Dulcolax) 10 mg RECTAL DAILY PRN PRN Reason: Constipation Calcitriol (Rocaltrol) 0.25 mcg PO DAILY [facility] Last Admin: 01/03/20 09:09 Dose: 0.25 mcg Documented by: Divalproex Sodium (Depakote Er) 1,250 mg PO BEDTIME [facility] Last Admin: 01/03/20 21:31 Dose: 1,250 mg Documented by: Docusate Sodium (Colace) 100 mg PO DAILY [facility] Last Admin: 01/03/20 09:09 Dose: 100 mg Documented by: Duloxetine HCl (Cymbalta) 60 mg PO DAILY [facility] Last Admin: 01/03/20 09:09 Dose: 60 mg Documented by: Ferrous Sulfate (Ferrous Sulfate) 325 mg PO WITHDINNER [facility] Last Admin: 01/03/20 17:53 Dose: 325 mg Documented by: Furosemide (Lasix) 20 mg PO DAILY [facility] Last Admin: 01/03/20 09:09 Dose: 20 mg Documented by: Heparin Sodium (Porcine) (Heparin Sodium) 5,000 units SUBCUT Q8HR [facility] Last Admin: 01/04/20 06:35 Dose: Not Given Documented by: Hydromorphone HCl (Dilaudid) 0.5 mg IVPUSH Q4H PRN PRN Reason: Pain (severe 7-10) Cefepime HCl 1 gm/ Sodium (Chloride) 50 mls @ 100 mls/hr IV DAILY [facility] Vancomycin HCl 1 gm/ Sodium (Chloride) 250 mls @ 166.667 mls/hr IV Q24H [facility] Lidocaine/Prilocaine ([place]ml[place] Crm) 5 gm TOP Q6H PRN PRN Reason: pain at injection site Last Admin: 01/03/20 16:29 Dose: 1 dose Documented by: Loratadine (Claritin) 10 mg PO BEDTIME [facility] Last Admin: 01/03/20 21:30 Dose: 10 mg Documented by: Multivitamins/Minerals (Vitamins And Minerals) 1 tab PO DAILY [facility] Last Admin: 01/03/20 09:09 Dose: 1 tab Documented by: Cranberry 250 Mg (Own Med) 500 mg PO TID [facility] Last Admin: 01/03/20 21:31 Dose: 500 mg Documented by: Methylphenidate 10 (MgOwn Med) 10 mg PO TID [facility] Last Admin: 01/03/20 21:32 Dose: 10 mg Documented by: Denta 5000 PlusOwn (Med) 1 applic DENT BID [facility] Last Admin: 01/03/20 21:33 Dose: 1 applic Documented by: Ondansetron HCl (Zofran) 4 mg IVPUSH Q6H PRN PRN Reason: Nausea/Vomiting Last Admin: 01/02/20 18:35 Dose: 4 mg Documented by: Jose 7-7-7Own (Med) 1 each PO DAILY [facility] Last Admin: 01/03/20 09:10 Dose: 1 each Documented by: Polyethylene Glycol (Miralax) 17 gm PO Q2D PRN PRN Reason: Constipation Sodium Bicarbonate (Sodium Bicarbonate) 1,300 mg PO BID [facility] Last Admin: 01/03/20 21:30 Dose: 1,300 mg Documented by: Sodium Chloride ([place] Nasal [place]) 0 ml ANEESH BID PRN PRN Reason: Congestion Vancomycin HCl (Pharmacy To Dose - Vancomycin) 0 dose .XX ASDIRECTED [facility] Discontinued Medications Acetaminophen (Tylenol) 650 mg PO Q4H PRN PRN Reason: Pain (Mild 1-3)/fever Amlodipine Besylate (Norvasc) 5 mg PO .STK-MED ONE Stop: 01/01/20 09:51 Calcitriol (Rocaltrol) 0.25 mcg PO .STK-MED ONE Stop: 01/01/20 09:51 Docusate Sodium (Colace) 100 mg PO .STK-MED ONE Stop: 01/01/20 09:51 Duloxetine HCl (Cymbalta) 30 mg PO .STK-MED ONE Stop: 01/01/20 09:51 Furosemide (Lasix) 20 mg PO .STK-MED ONE Stop: 01/01/20 09:51 Hydromorphone HCl (Dilaudid) 0.5 mg IVPUSH Q2H PRN PRN Reason: Pain (severe 7-10) Last Admin: 01/01/20 06:30 Dose: 0.5 mg Documented by: Sodium Chloride (Normal Saline) 1,000 mls @ 125 mls/hr IV ASDIRECTED [facility] Last Infusion: 01/02/20 11:01 Dose: Infused Documented by: Cefepime HCl 1 gm/ Sodium (Chloride) 50 mls @ 100 mls/hr IV Q8H [facility] Last Admin: 12/31/19 19:49 Dose: Not Given Documented by: Cefepime HCl 1 gm/ Sodium (Chloride) 50 mls @ 100 mls/hr IV Q12HR [facility] Last Infusion: 01/03/20 10:48 Dose: Infused Documented by: Cefepime HCl 1 gm/ Sodium (Chloride) 50 mls @ as directed IV .STK-MED ONE Stop: 01/01/20 09:51 Vancomycin HCl 1 gm/ Sodium (Chloride) 250 mls @ 166.667 mls/hr IV Q24H [facility] Last Admin: 01/03/20 16:56 Dose: 166.667 mls/hr Documented by: Multivitamins/Minerals (Vitamins And Minerals) 1 tab PO .STK-MED ONE Stop: 01/01/20 09:51 Non-Formulary Medication (Norethindrone-Ethin. Estradiol [[place] 1-35 28 Tablet]) 1 each PO DAILY [facility] Non-Formulary Medication (Zinc Oxide/Panthenol/Vitamin E [Balmex Adult Care 11.3% Cream]) 1 applic TOP BID PRN PRN Reason: Rash Potassium Chloride (Klor-Con 10) 40 meq PO ONETIME ONE Stop: 01/02/20 10:34 Last Admin: 01/02/20 12:17 Dose: 40 meq Documented by: Sodium Bicarbonate (Sodium Bicarbonate) 1 mg PO .STK-MED ONE Stop: 01/01/20 09:51 - Exam General: Reports: Alert, Oriented Neck: Reports: Supple Lungs: Reports: Clear to Auscultation, Normal Respiratory Effort Cardiovascular: Reports: Regular Rate, Regular Rhythm GI/Abdominal Exam: Normal Bowel Sounds, Soft, Non-Tender, Other (urostomy with clear urine) Extremities: No Pedal Edema
[2020-01-04] MEDS: amLODIPine 5 MG Tab PO SCH (09:14)
[2020-01-04] MEDS: DASETTA PO SCH (09:14)
[2020-01-04] MEDS: Calcitriol 0.25 MCG Cap PO SCH (09:15)
[2020-01-04] MEDS: Multivitamins, Therapeutic with Minerals Tab PO SCH (09:15)
[2020-01-04] MEDS: DULoxetine 30 MG Cap PO SCH (09:15)
[2020-01-04] MEDS: Furosemide 20 MG Tab PO SCH (09:15)
[2020-01-04] MEDS: Sodium Bicarbonate 650 MG Tab PO SCH (09:16)
[2020-01-04] MEDS: CRANBERRY 250 MG PO SCH (09:16)
[2020-01-04] MEDS: Docusate Sodium 100 MG Cap PO SCH (09:16)
[2020-01-04] MEDS: METHYLPHENIDATE 10 MG PO SCH (09:20)
[2020-01-04] MEDS: DENTA DENT SCH (09:22)
== END 2020-01-04 13:15 | disposition home or self-care (01) | DRG 698 ==
LOC: DL.MS 16:53
PROVIDERS: ADMIT Hospitalist; ATTEND Internal Medicine
DX: N99.528 Other complication of incontinent external stoma of urinary tract (principal); A41.9 Sepsis, unspecified organism; N10 Acute pyelonephritis; N18.4 Chronic kidney disease, stage 4 (severe); B96.20 Unspecified Escherichia coli [E. coli] as the cause of diseases classified elsewhere; G40.909 Epilepsy, unspecified, not intractable, without status epilepticus; F32.9 Major depressive disorder, single episode, unspecified; I12.9 Hypertensive chronic kidney disease with stage 1 through stage 4 chronic kidney disease, or unspecified chronic kidney disease; K59.09 Other constipation; Z88.5 Allergy status to narcotic agent; Z91.018 Allergy to other foods; Z79.899 Other long term (current) drug therapy
CPT/HCPCS: 36415; 74176; 80048; 85025; 85027; 87040; 87077; 99222; 99232; 99238; A9270-GY; J0692; J1170; J1644; J2405; J3370; J7030; J7050

== ENCOUNTER 2020-03-29 04:44 | Inpatient (IN) | payer MEDICARE, MEDICAID ==
[2020-03-29] MEDS ORDERED: Acetaminophen 325 MG Tab PO ONE (04:49)
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
[2020-03-29] MEDS ORDERED: Sodium Chloride 0.9% 1,000 ML IV SCH (05:00)
[2020-03-29 05:35] LABS: ANION GAP 12.1 mEq/L (7-13)
[2020-03-29] MEDS ORDERED: Ketorolac 30 MG/ML SDV IVPUSH ONE (06:01)
[2020-03-29] MEDS ORDERED: Sodium Chloride 0.9% 250 ML IV SCH (06:15)
[2020-03-29] MEDS: cefTRIAXone 2 GM in Sodium Chloride 0.9% 100 ML IV SCH (07:45)
[2020-03-29] MEDS: Sodium Chloride 0.9% 1,000 ML IV SCH ×2 (07:45→19:10)
[2020-03-29] MEDS ORDERED: HYDROmorphone 1 MG/ML Syringe IVPUSH ONE (08:50)
[2020-03-29] MEDS: traMADol 50 MG Tab PO SCH ×3 (09:08→21:12)
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
[2020-03-29] MEDS: Acetaminophen 325 MG Tab PO PRN ×2 (11:35→17:36)
[2020-03-29] MEDS ORDERED: Docusate Sodium 100 MG Cap PO PRN (11:45)
[2020-03-29] MEDS ORDERED: Polyethylene Glycol 3350 Powder 17 GM Packet PO PRN (11:51)
[2020-03-29] MEDS ORDERED: [UNRECOGNIZED DRUG - OTHER] TOP PRN (11:51)
[2020-03-29] MEDS ORDERED: traMADol 50 MG Tab PO PRN (11:51)
[2020-03-29] MEDS ORDERED: ZINC OXIDE TOP PRN (11:51)
[2020-03-29] MEDS ORDERED: VITAMIN E TOP PRN (11:51)
[2020-03-29] MEDS ORDERED: Bisacodyl 10 MG Supp RECTAL PRN (11:51)
[2020-03-29] MEDS ORDERED: Sodium Chloride 0.65% Nasal Spray 45 ML Bottle NAS PRN (11:51)
[2020-03-29] MEDS: Piperacillin/Tazobactam 3.375 GM in Sodium Chloride 0.9% 100 ML IV SCH ×2 (13:21→19:51)
[2020-03-29] MEDS ORDERED: Divalproex Sodium 250 MG Tab.ER PO ONE (21:00)
[2020-03-30] MEDS: Acetaminophen 325 MG Tab PO PRN (00:52)
[2020-03-30] MEDS: Piperacillin/Tazobactam 3.375 GM in Sodium Chloride 0.9% 100 ML IV SCH ×4 (00:55→18:17)
[2020-03-30] MEDS: traMADol 50 MG Tab PO SCH ×4 (02:50→21:35)
[2020-03-30] MEDS: cefTRIAXone 2 GM in Sodium Chloride 0.9% 100 ML IV SCH (05:46)
[2020-03-30 07:04] LABS: ANION GAP 13.7 mEq/L (7-13)
[2020-03-30] MEDS: Sodium Chloride 0.9% 1,000 ML IV SCH ×2 (07:21→20:07)
[2020-03-30] MEDS: Enoxaparin 40 MG/0.4 ML Syringe SUBCUT SCH (09:34)
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
[2020-03-30] MEDS: DULoxetine 30 MG Cap PO SCH (14:24)
[2020-03-30] MEDS: Sodium Bicarbonate 650 MG Tab PO SCH ×2 (14:24→21:34)
[2020-03-30] MEDS: amLODIPine 5 MG Tab PO SCH (14:25)
[2020-03-30] MEDS: Calcitriol 0.25 MCG Cap PO SCH (14:25)
[2020-03-30] MEDS: Furosemide 20 MG Tab PO SCH (14:25)
[2020-03-30] MEDS: Multivitamins, Therapeutic with Minerals Tab PO SCH (18:16)
[2020-03-30] MEDS: Ferrous Sulfate 325 MG Tab PO SCH (18:16)
[2020-03-30] MEDS: Divalproex Sodium 250 MG Tab.ER PO SCH (21:34)
[2020-03-31] MEDS: Piperacillin/Tazobactam 3.375 GM in Sodium Chloride 0.9% 100 ML IV SCH ×2 (01:32→06:26)
[2020-03-31] MEDS: traMADol 50 MG Tab PO SCH ×4 (03:05→20:40)
[2020-03-31] MEDS: cefTRIAXone 2 GM in Sodium Chloride 0.9% 100 ML IV SCH (05:06)
[2020-03-31] MEDS: Enoxaparin 40 MG/0.4 ML Syringe SUBCUT SCH (08:40)
[2020-03-31] MEDS: Sodium Bicarbonate 650 MG Tab PO SCH ×2 (08:40→20:38)
[2020-03-31] MEDS: DULoxetine 30 MG Cap PO SCH (08:41)
[2020-03-31] MEDS: amLODIPine 5 MG Tab PO SCH (08:41)
[2020-03-31] MEDS: Calcitriol 0.25 MCG Cap PO SCH (08:41)
[2020-03-31] MEDS: Acetaminophen 325 MG Tab PO PRN (08:41)
[2020-03-31] MEDS: Furosemide 20 MG Tab PO SCH (08:42)
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
[2020-03-31] MEDS ORDERED: Piperacillin/Tazobactam 3.375 GM in Sodium Chloride 0.9% 100 ML IV SCH (12:00)
[2020-03-31] MEDS: NORETHINDRONE ETHIN ESTRADIOL PO SCH ×2 (12:04→12:05)
[2020-03-31] MEDS: CETIRIZINE 10 MG PO SCH ×3 (12:04→20:37)
[2020-03-31] MEDS: METHYLPHENIDATE 10 MG PO SCH ×5 (12:04→20:43)
[2020-03-31] MEDS: Non-Formulary Medication 1 Each (Cranberry [Cranberry] 500 MG) PO SCH ×3 (14:38→14:40)
[2020-03-31] MEDS: Multivitamins, Therapeutic with Minerals Tab PO SCH (19:17)
[2020-03-31] MEDS: Ferrous Sulfate 325 MG Tab PO SCH (19:17)
[2020-03-31] MEDS: Divalproex Sodium 250 MG Tab.ER PO SCH (20:39)
[2020-03-31] MEDS ORDERED: Simethicone 80 MG Tab.Chew PO PRN (22:41)
[2020-04-01] MEDS: Acetaminophen 325 MG Tab PO PRN (01:42)
[2020-04-01] MEDS: traMADol 50 MG Tab PO SCH ×2 (03:05→09:46)
[2020-04-01] MEDS: cefTRIAXone 2 GM in Sodium Chloride 0.9% 100 ML IV SCH (06:06)
[2020-04-01 07:06] LABS: ANION GAP 10.9 mEq/L (7-13)
[2020-04-01] MEDS: amLODIPine 5 MG Tab PO SCH (09:46)
[2020-04-01] MEDS: DULoxetine 30 MG Cap PO SCH (09:46)
[2020-04-01] MEDS: Sodium Bicarbonate 650 MG Tab PO SCH (09:48)
[2020-04-01] MEDS: Furosemide 20 MG Tab PO SCH (09:48)
[2020-04-01] MEDS: Calcitriol 0.25 MCG Cap PO SCH (09:48)
[2020-04-01] MEDS: Enoxaparin 40 MG/0.4 ML Syringe SUBCUT SCH (09:49)
[2020-04-01] MEDS: NORETHINDRONE ETHIN ESTRADIOL PO SCH (09:51)
[2020-04-01] MEDS: METHYLPHENIDATE 10 MG PO SCH ×2 (09:53→11:18)
[2020-04-01] MEDS ORDERED: Sodium Chloride 0.9% 10 ML Syringe FLUSH PRN (09:59)
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
== END 2020-04-01 12:45 | DRG 699 ==
LOC: DL.ED 04:44 → DL.MS 05:59 → OBSVTOIN 03-30 13:27
PROVIDERS: ADMIT Internal Medicine Nephrology; ATTEND Internal Medicine
DX: N12 Tubulo-interstitial nephritis, not specified as acute or chronic (principal); T83.511A Infection and inflammatory reaction due to indwelling urethral catheter, initial encounter; N10 Acute pyelonephritis; G82.20 Paraplegia, unspecified; N18.30 Chronic kidney disease, stage 3 unspecified; Z87.440 Personal history of urinary (tract) infections; N13.30 Unspecified hydronephrosis; N18.4 Chronic kidney disease, stage 4 (severe); E87.1 Hypo-osmolality and hyponatremia; G89.29 Other chronic pain; N39.0 Urinary tract infection, site not specified; F79 Unspecified intellectual disabilities; G40.909 Epilepsy, unspecified, not intractable, without status epilepticus; F32.9 Major depressive disorder, single episode, unspecified; E61.1 Iron deficiency; H54.7 Unspecified visual loss; K59.09 Other constipation; N31.9 Neuromuscular dysfunction of bladder, unspecified; I12.9 Hypertensive chronic kidney disease with stage 1 through stage 4 chronic kidney disease, or unspecified chronic kidney disease; Z96.0 Presence of urogenital implants; M16.11 Unilateral primary osteoarthritis, right hip; M54.9 Dorsalgia, unspecified; B96.20 Unspecified Escherichia coli [E. coli] as the cause of diseases classified elsewhere; B96.5 Pseudomonas (aeruginosa) (mallei) (pseudomallei) as the cause of diseases classified elsewhere; B95.61 Methicillin susceptible Staphylococcus aureus infection as the cause of diseases classified elsewhere; Z79.899 Other long term (current) drug therapy; Z88.8 Allergy status to other drugs, medicaments and biological substances; Z88.5 Allergy status to narcotic agent; Z91.040 Latex allergy status; Z91.018 Allergy to other foods; Z79.891 Long term (current) use of opiate analgesic; T14.8XXS Other injury of unspecified body region, sequela; Z90.89 Acquired absence of other organs; Z82.3 Family history of stroke; Z83.3 Family history of diabetes mellitus; Z86.19 Personal history of other infectious and parasitic diseases
CPT/HCPCS: 36415 ×2; 80048; 80053; 81001; 83605; 85025 ×2; 87040 ×3; 87086 ×2; 87088 ×3; 87186 ×3; 99285; A9270 ×10; J0696 ×2; J1170; J1650; J2543 ×5; J7030 ×4; J7050 ×7; 85027; 99283

== ENCOUNTER 2020-08-19 08:46 | Emergency (ER) | payer MEDICARE, MEDICAID ==
[2020-08-19] MEDS ORDERED: Ondansetron 4 MG/2 ML SDV IVPUSH ONE (09:26)
[2020-08-19] MEDS ORDERED: Sodium Chloride 0.9% 1,000 ML IV ONE (09:26)
[2020-08-19 09:30] LABS: ANION GAP 15.6 mEq/L (7-13)
[2020-08-19] MEDS ORDERED: HYDROmorphone 0.5 MG/0.5 ML Syringe IVPUSH ONE (09:34)
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
--- NOTE | 2020-08-19 11:13 | CT ---
PROCEDURE INFORMATION: Exam: CT Abdomen And Pelvis Without Contrast Exam date and time: 08/19/2020 10:12 AM Age: 40 years old Clinical indication: Other: Back pain with hematuria; Patient HX: HX kidney stones TECHNIQUE: Imaging protocol: Computed tomography of the abdomen and pelvis without contrast. Radiation optimization: All CT scans at this facility use at least one of these dose optimization techniques: automated exposure control; mA and/or kV adjustment per patient size (includes targeted exams where dose is matched to clinical indication); or iterative reconstruction. COMPARISON: CT Abdomen Pelvis wo Cont 07/25/2020 11:33 AM FINDINGS: Liver: Sagittal length 18 cm. There is a diffuse decrease in hepatic parenchymal density, consistent with moderate fatty infiltration. No mass. Gallbladder and bile ducts: Normal. No calcified stones. No ductal dilation. Pancreas: Normal. No ductal dilation. Spleen: Normal. No splenomegaly. Adrenal glands: Normal. No mass. Kidneys and ureters: Bilateral chronic renal scarring. No visualized renal calcifications. Bilateral chronic mild to moderate hydronephrosis and hydroureter with ileal conduit. Stomach and bowel: There right large parastomal hernia containing nonobstructed large and small bowel as well as mesenteric fat. No intra-abdominal or pelvic bowel obstruction. Moderate pelvic stool load. Multiple pelvic clips secondary to cystectomy. Appendix: No evidence of appendicitis. Intraperitoneal space: Unremarkable. No free air. No significant fluid collection. Vasculature: Unremarkable. No abdominal aortic aneurysm. Lymph nodes: Unremarkable. No enlarged lymph nodes. Urinary bladder: Surgically removed. Reproductive: Unremarkable as visualized. Bones/joints: Unremarkable. No acute fracture. Soft tissues: Unremarkable. IMPRESSION: 1. No acute findings. No renal or ureteral calculi. 2. Ileal conduit/uroileostomy with stable chronic bilateral hydronephrosis and hydroureter. 3. Stable large nonobstructive bowel and mesenteric fat containing right parastomal hernia. 4. Hepatomegaly and steatosis.
[2020-08-19] MEDS ORDERED: cefTRIAXone 1 GM in Sodium Chloride 0.9% 50 ML IV ONE (11:21)
== END 2020-08-19 13:09 | disposition home or self-care (01) ==
LOC: DL.ED 08:46
DX: N39.0 Urinary tract infection, site not specified (principal); I12.9 Hypertensive chronic kidney disease with stage 1 through stage 4 chronic kidney disease, or unspecified chronic kidney disease; N18.4 Chronic kidney disease, stage 4 (severe); D50.9 Iron deficiency anemia, unspecified; Z96.0 Presence of urogenital implants; Z88.8 Allergy status to other drugs, medicaments and biological substances; Z88.5 Allergy status to narcotic agent; Z88.6 Allergy status to analgesic agent; Z91.040 Latex allergy status; Z91.018 Allergy to other foods; Z91.041 Radiographic dye allergy status; Z79.899 Other long term (current) drug therapy
CPT/HCPCS: 36415; 74176; 80053; 81001; 83605; 85025; 87040; 87086; 87088; 87186; 96365; 96375; 99283; 99284; J0696; J1170; J2405; J7030

== ENCOUNTER 2022-04-07 15:11 | Emergency (ER) | payer MEDICARE, MEDICAID ==
[2022-04-07] MEDS: Sodium Chloride 0.9% 10 ML Syringe FLUSH PRN (15:53)
[2022-04-07] MEDS: Ondansetron 4 MG/2 ML SDV IV ONE (15:53)
[2022-04-07] MEDS: HYDROmorphone 0.5 MG/0.5 ML Syringe IVPUSH ONE (15:53)
[2022-04-07] MEDS: Ciprofloxacin in D5W 200 MG in Premix Bag 1 BAG IV ONE ×2 (15:54)
[2022-04-07] MEDS: Sodium Chloride 0.9% 500 ML IV SCH (15:56)
[2022-04-07 17:50] LABS: ANION GAP 14.3 mEq/L (7-13)
== END 2022-04-07 18:26 | disposition home or self-care (01) ==
LOC: DL.ED 15:11
DX: N12 Tubulo-interstitial nephritis, not specified as acute or chronic (principal); I12.9 Hypertensive chronic kidney disease with stage 1 through stage 4 chronic kidney disease, or unspecified chronic kidney disease; N18.4 Chronic kidney disease, stage 4 (severe); Z88.5 Allergy status to narcotic agent; Z88.8 Allergy status to other drugs, medicaments and biological substances; Z91.018 Allergy to other foods; Z91.041 Radiographic dye allergy status; Z79.899 Other long term (current) drug therapy
CPT/HCPCS: 36415; 80048; 96365; 96375; 99284-25; J0744; J1170; J2405; J3490; J7040

== ENCOUNTER 2023-09-14 08:26 | Emergency (ER) | payer MEDICARE, MEDICAID ==
[2023-09-14 08:35] LABS: BASOPHILS PERCENT AUTO 0.4 % (0.0-1.0); EOSINOPHILS PERCENT AUTO 6.8 % (1.0-3.0); HEMATOCRIT 39.5 % (37.0-47.0); HEMOGLOBIN 12.6 g/dL (12.0-16.0); LYMPHOCYTES PERCENT AUTO 35.9 % (20.5-50.1); MEAN CORPUSCULAR HEMOGLOBIN 31.5 pg (27.0-34.0); MEAN CORPUSCULAR HGB CONC 31.9 g/dL (33.0-35.0); MEAN CORPUSCULAR VOLUME 98.8 fL (80-100); MONOCYTES PERCENT AUTO 9.2 % (2-8); NEUTROPHILS PERCENT AUTO 47.7 % (42.2-75.2); PLATELET COUNT,PLT 239 10^3/uL (150-450); WHITE BLOOD CELL COUNT,WBC 5.4 10^3/uL (5.0-10.0)
[2023-09-14] MEDS: Ondansetron 4 MG/2 ML SDV ONE (08:40)
[2023-09-14] MEDS: levETIRAcetam in NaCl (iso-os) 100 ML ONE (08:40)
[2023-09-14 08:49] LABS: ALANINE AMINOTRANSFERASE,ALT 13 U/L (14-59); ALBUMIN 3.1 g/dL (3.4-5.0); ALKALINE PHOSPHATASE 63 U/L (46-116); ANION GAP 14.1 mEq/L (7-13); ASPARTATE AMNIOTRANSFERASE,AST 17 U/L (15-37); BILIRUBIN TOTAL 0.3 mg/dL (0.2-1.0); BLOOD UREA NITROGEN,BUN 25 mg/dL (7-18); BUN/CREATININE RATIO 11.7 (No establ ref range); CALCIUM 8.2 mg/dL (8.5-10.1); CARBON DIOXIDE,CO2 27 mmol/L (21-32); CHLORIDE,CL 99 mmol/L (98-107); CREATINE KINASE,CK 69 U/L (16-191); CREATININE 2.13 mg/dL (0.55-1.02); GLUCOSE RANDOM 132 mg/dL (70-99); LIPASE 75 U/L (16-77); MAGNESIUM 1.9 mg/dL (1.8-2.4); PHOSPHORUS 2.5 mg/dL (2.6-4.7); POTASSIUM,K 4.1 mmol/L (3.5-5.1); PROTEIN TOTAL,TP 6.8 g/dL (6.4-8.2); SODIUM,NA 136 mmol/L (136-145)
[2023-09-14 08:50] LABS: A/G RATIO 0.84; ESTIMATED GFR 29 mL/min (>=60)
[2023-09-14] MEDS: levETIRAcetam in NaCl (iso-os) 1,500 MG in Premix Bag 1 BAG IV ONE (08:57)
[2023-09-14 08:58] LABS: B-TYPE NATRIURETIC PEPTIDE,BNP 558 pg/ml (0-100)
[2023-09-14] MEDS: Ondansetron 4 MG/2 ML SDV IV ONE (08:58)
[2023-09-14] MEDS: Sodium Chloride 0.9% 10 ML Syringe FLUSH PRN (08:58)
== END 2023-09-14 10:15 | disposition home or self-care (01) ==
LOC: DL.ED 08:26
DX: G40.909 Epilepsy, unspecified, not intractable, without status epilepticus (principal); I12.0 Hypertensive chronic kidney disease with stage 5 chronic kidney disease or end stage renal disease; N18.6 End stage renal disease; Z86.16 Personal history of COVID-19; Z79.899 Other long term (current) drug therapy; Z99.2 Dependence on renal dialysis; Z91.040 Latex allergy status; Z88.5 Allergy status to narcotic agent; Z88.6 Allergy status to analgesic agent; Z91.018 Allergy to other foods
CPT/HCPCS: 36415; 71045; 80053; 82550; 82947; 83690; 83735; 83880; 84100; 84484; 85025; 96374; 96375; 99284; 99285; J1953; J2405; J3490

== ENCOUNTER 2023-10-03 08:49 | Emergency (ER) | payer MEDICARE, MEDICAID ==
[2023-10-03] MEDS: Ondansetron 4 MG/2 ML SDV IVPUSH ONE (08:58)
[2023-10-03] MEDS: levETIRAcetam in NaCl (iso-os) 1,000 MG in Premix Bag 1 BAG IV ONE (08:58)
[2023-10-03 09:00] LABS: BASOPHILS PERCENT AUTO 0.3 % (0.0-1.0); EOSINOPHILS PERCENT AUTO 4.8 % (1.0-3.0); HEMATOCRIT 35.7 % (37.0-47.0); HEMOGLOBIN 11.5 g/dL (12.0-16.0); LYMPHOCYTES PERCENT AUTO 38.4 % (20.5-50.1); MEAN CORPUSCULAR HEMOGLOBIN 30.8 pg (27.0-34.0); MEAN CORPUSCULAR HGB CONC 32.2 g/dL (33.0-35.0); MEAN CORPUSCULAR VOLUME 95.7 fL (80-100); MONOCYTES PERCENT AUTO 6.7 % (2-8); NEUTROPHILS PERCENT AUTO 49.8 % (42.2-75.2); PLATELET COUNT,PLT 210 10^3/uL (150-450); RED BLOOD CELL COUNT 3.73 10^6/uL (4.2-5.4); WHITE BLOOD CELL COUNT,WBC 5.9 10^3/uL (5.0-10.0)
[2023-10-03 09:14] LABS: ALANINE AMINOTRANSFERASE,ALT 18 U/L (14-59); ALKALINE PHOSPHATASE 68 U/L (46-116); ANION GAP 13.2 mEq/L (7-13); ASPARTATE AMNIOTRANSFERASE,AST 15 U/L (15-37); BILIRUBIN TOTAL 0.2 mg/dL (0.2-1.0); BLOOD UREA NITROGEN,BUN 33 mg/dL (7-18); BUN/CREATININE RATIO 14.5 (No establ ref range); CALCIUM 8.3 mg/dL (8.5-10.1); CARBON DIOXIDE,CO2 28 mmol/L (21-32); CHLORIDE,CL 100 mmol/L (98-107); CREATININE 2.28 mg/dL (0.55-1.02); GLUCOSE RANDOM 100 mg/dL (70-99); POTASSIUM,K 4.2 mmol/L (3.5-5.1); PROTEIN TOTAL,TP 6.7 g/dL (6.4-8.2); SODIUM,NA 137 mmol/L (136-145)
[2023-10-03 09:19] LABS: A/G RATIO 0.81; ESTIMATED GFR 27 mL/min (>=60)
[2023-10-03 10:50] LABS: APPEARANCE,URINE SLIGHTLY CLOUDY (CLEAR); BILIRUBIN,URINE NEGATIVE (NEGATIVE); COLOR,URINE YELLOW (YELLOW); GLUCOSE,URINE NEGATIVE (NEGATIVE); KETONES,URINE NEGATIVE (NEGATIVE); LEUKOCYTE ESTERASE,URINE SMALL (NEGATIVE); NITRITE,URINE NEGATIVE (NEGATIVE); OCCULT BLOOD,URINE MODERATE (NEGATIVE); PH,URINE 8.5 (5.0-9.0); PROTEIN,URINE >=300 (NEGATIVE); UROBILINOGEN,URINE 0.2 mg/dL (0.2-1.0)
[2023-10-03 10:53] LABS: AMPHETAMINES,URINE NEGATIVE (NEGATIVE); BARBITURATES,URINE NEGATIVE (NEGATIVE); BENZODIAZEPINE,URINE NEGATIVE (NEGATIVE); MDMA (ECSTASY), URINE NEGATIVE (NEGATIVE); METHADONE,URINE NEGATIVE (NEGATIVE); METHAMPHETAMINES,URINE NEGATIVE (NEGATIVE); OPIATES,URINE NEGATIVE (NEGATIVE); OXYCODONE,URINE NEGATIVE (NEGATIVE); PHENCYCLIDINE,URINE NEGATIVE (NEGATIVE); TCA,URINE NEGATIVE (NEGATIVE)
[2023-10-03 11:01] LABS: BACTERIA,URINE MODERATE /HPF (0-FEW/HPF); EPITHELIAL CELLS,URINE FEW /HPF (NOT SEEN); HYALINE CASTS,URINE FEW; MUCUS,URINE MODERATE /LPF (NOT SEEN); RBC,URINE 40-50 /HPF (0-5); WBC,URINE 20-30 /HPF (0-5/HPF)
[2023-10-03] MEDS: Nitrofurantoin Monohydrate/Macrocrystalline 100 MG Cap PO ONE (11:42)
[2023-10-03] MEDS: Acetaminophen 325 MG Tab PO ONE (11:42)
== END 2023-10-03 11:48 | disposition home or self-care (01) ==
LOC: DL.ED 08:49
DX: G40.909 Epilepsy, unspecified, not intractable, without status epilepticus (principal); I10 Essential (primary) hypertension; Z79.899 Other long term (current) drug therapy; Z88.5 Allergy status to narcotic agent; Z91.041 Radiographic dye allergy status; Z91.040 Latex allergy status; Z88.8 Allergy status to other drugs, medicaments and biological substances; Z99.2 Dependence on renal dialysis
CPT/HCPCS: 36415; 80053; 80164; 80305-QW; 81001; 81025; 83605; 83735; 85025; 87086; 87088; 87186; 93005; 93010; 96374; 96375; 99284; 99284-25; A9270-GY; C1758; J1953; J2405

== ENCOUNTER 2024-04-02 16:51 | Emergency (ER) | payer MEDICARE, MEDICAID ==
[2024-04-02 15:55] LABS: BASOPHILS PERCENT AUTO 0.5 % (0.0-1.0); EOSINOPHILS PERCENT AUTO 0.8 % (1.0-3.0); HEMATOCRIT 39.5 % (37.0-47.0); LYMPHOCYTES PERCENT AUTO 24.5 % (20.5-50.1); MEAN CORPUSCULAR HEMOGLOBIN 31.2 pg (27.0-34.0); MEAN CORPUSCULAR HGB CONC 32.9 g/dL (33.0-35.0); MEAN CORPUSCULAR VOLUME 94.7 fL (80-100); MONOCYTES PERCENT AUTO 9.8 % (2-8); NEUTROPHILS PERCENT AUTO 64.4 % (42.2-75.2); PLATELET COUNT,PLT 259 10^3/uL (150-450); RED BLOOD CELL COUNT 4.17 10^6/uL (4.2-5.4)
[2024-04-02 16:35] LABS: A/G RATIO 1.2; ALANINE AMINOTRANSFERASE,ALT 19 U/L (14-59); ALBUMIN 3.8 g/dL (3.4-5.0); ALKALINE PHOSPHATASE 65 U/L (46-116); ANION GAP 11.7 mEq/L (7-13); ASPARTATE AMNIOTRANSFERASE,AST 14 U/L (15-37); BILIRUBIN TOTAL 0.3 mg/dL (0.2-1.0); BLOOD UREA NITROGEN,BUN 18 mg/dL (7-18); BUN/CREATININE RATIO 28.6 (No establ ref range); CARBON DIOXIDE,CO2 27 mmol/L (21-32); CHLORIDE,CL 101 mmol/L (98-107); CREATININE 0.63 mg/dL (0.55-1.02); GLUCOSE RANDOM 109 mg/dL (70-99); POTASSIUM,K 4.7 mmol/L (3.5-5.1); PROTEIN TOTAL,TP 7.1 g/dL (6.4-8.2); SODIUM,NA 135 mmol/L (136-145)
[2024-04-02 16:37] LABS: ACETAMINOPHEN 0 ug/mL (10-30 (Therapeutic)); ESTIMATED GFR 114 mL/min (>=60); ETHANOL BLOOD MEDICAL < 3 mg/dL (0)
[2024-04-02] MEDS: Ondansetron 4 MG Tab.DIS ONE (16:57)
[2024-04-02] MEDS: Ondansetron 4 MG Tab.DIS PO ONE (16:57)
[2024-04-02 19:06] LABS: AMPHETAMINES,URINE NEGATIVE (NEGATIVE); BARBITURATES,URINE NEGATIVE (NEGATIVE); BENZODIAZEPINE,URINE NEGATIVE (NEGATIVE); MDMA (ECSTASY), URINE NEGATIVE (NEGATIVE); METHADONE,URINE NEGATIVE (NEGATIVE); METHAMPHETAMINES,URINE NEGATIVE (NEGATIVE); OPIATES,URINE NEGATIVE (NEGATIVE); OXYCODONE,URINE NEGATIVE (NEGATIVE); PHENCYCLIDINE,URINE NEGATIVE (NEGATIVE); TCA,URINE NEGATIVE (NEGATIVE)
[2024-04-02 19:07] LABS: BILIRUBIN,URINE NEGATIVE (NEGATIVE); GLUCOSE,URINE NEGATIVE (NEGATIVE); KETONES,URINE NEGATIVE (NEGATIVE); LEUKOCYTE ESTERASE,URINE TRACE (NEGATIVE); NITRITE,URINE NEGATIVE (NEGATIVE); OCCULT BLOOD,URINE TRACE-INTACT (NEGATIVE); PH,URINE 7.5 (5.0-9.0); PROTEIN,URINE NEGATIVE (NEGATIVE); UROBILINOGEN,URINE 0.2 mg/dL (0.2-1.0)
[2024-04-02 19:08] LABS: APPEARANCE,URINE SLIGHTLY CLOUDY (CLEAR); COLOR,URINE LIGHT YELLOW (YELLOW)
[2024-04-02 19:23] LABS: AMORPHOUS SEDIMENT,URINE FEW /HPF (NOT SEEN); BACTERIA,URINE FEW /HPF (0-FEW/HPF); EPITHELIAL CELLS,URINE RARE /HPF (NOT SEEN); RBC,URINE 0-5 /HPF (0-5)
[2024-04-02] MEDS: LORazepam 1 MG Tab PO ONE (19:31)
== END 2024-04-02 19:36 | disposition home or self-care (01) ==
LOC: DL.ED 16:51
DX: F41.0 Panic disorder [episodic paroxysmal anxiety] (principal); R06.4 Hyperventilation; I10 Essential (primary) hypertension; Z90.89 Acquired absence of other organs; Z91.040 Latex allergy status; Z88.5 Allergy status to narcotic agent; Z88.6 Allergy status to analgesic agent; Z91.041 Radiographic dye allergy status; Z91.018 Allergy to other foods; Z79.1 Long term (current) use of non-steroidal anti-inflammatories (NSAID); Z79.891 Long term (current) use of opiate analgesic; Z79.899 Other long term (current) drug therapy
CPT/HCPCS: 36415; 80053; 80143; 80179; 80305; 80307; 81001; 81025; 83605; 85025; 87086; 99285; A9270; 99284

== ENCOUNTER 2024-04-08 01:37 | Emergency (ER) | payer MEDICARE, MEDICAID ==
[2024-04-08] MEDS: fentaNYL 100 MCG/2 ML SDV IVPUSH ONE (01:33)
[2024-04-08 02:08] LABS: BASOPHILS PERCENT AUTO 0.4 % (0.0-1.0); EOSINOPHILS PERCENT AUTO 0.6 % (1.0-3.0); HEMATOCRIT 38.7 % (37.0-47.0); HEMOGLOBIN 12.7 g/dL (12.0-16.0); LYMPHOCYTES PERCENT AUTO 25.5 % (20.5-50.1); MEAN CORPUSCULAR HEMOGLOBIN 30.9 pg (27.0-34.0); MEAN CORPUSCULAR HGB CONC 32.8 g/dL (33.0-35.0); MEAN CORPUSCULAR VOLUME 94.2 fL (80-100); MONOCYTES PERCENT AUTO 12.7 % (2-8); NEUTROPHILS PERCENT AUTO 60.8 % (42.2-75.2); PLATELET COUNT,PLT 277 10^3/uL (150-450); RED BLOOD CELL COUNT 4.11 10^6/uL (4.2-5.4); WHITE BLOOD CELL COUNT,WBC 5.2 10^3/uL (5.0-10.0)
[2024-04-08 02:29] LABS: A/G RATIO 1.2; ALANINE AMINOTRANSFERASE,ALT 23 U/L (14-59); ALBUMIN 3.7 g/dL (3.4-5.0); ALKALINE PHOSPHATASE 63 U/L (46-116); ANION GAP 9.3 mEq/L (7-13); ASPARTATE AMNIOTRANSFERASE,AST 19 U/L (15-37); BILIRUBIN TOTAL 0.3 mg/dL (0.2-1.0); BLOOD UREA NITROGEN,BUN 14 mg/dL (7-18); BUN/CREATININE RATIO 21.2 (No establ ref range); CALCIUM 9.8 mg/dL (8.5-10.1); CARBON DIOXIDE,CO2 29 mmol/L (21-32); CHLORIDE,CL 98 mmol/L (98-107); CREATININE 0.66 mg/dL (0.55-1.02); ESTIMATED GFR 113 mL/min (>=60); GLUCOSE RANDOM 107 mg/dL (70-99); MAGNESIUM 1.5 mg/dL (1.8-2.4); POTASSIUM,K 4.3 mmol/L (3.5-5.1); PROTEIN TOTAL,TP 6.8 g/dL (6.4-8.2); SODIUM,NA 132 mmol/L (136-145)
[2024-04-08 02:32] LABS: LACTIC ACID 0.9 mmol/L (0.4-2.0)
[2024-04-08] MEDS: Magnesium Sulfate/Water Premix 2 GM in Premix Bag 1 BAG IV ONE (02:38)
== END 2024-04-08 03:48 | disposition home or self-care (01) ==
LOC: DL.ED 01:37
DX: R51.9 Headache, unspecified (principal); M54.6 Pain in thoracic spine; I10 Essential (primary) hypertension; Z90.89 Acquired absence of other organs; Z88.5 Allergy status to narcotic agent; Z88.8 Allergy status to other drugs, medicaments and biological substances; Z91.041 Radiographic dye allergy status; Z91.040 Latex allergy status; Z91.018 Allergy to other foods; Z79.891 Long term (current) use of opiate analgesic; Z79.899 Other long term (current) drug therapy; W06.XXXA Fall from bed, initial encounter
CPT/HCPCS: 36415; 70450; 72125; 80053; 83605; 83735; 85025; 96365; 96375; 99284; J3010; J3475; 99283

== ENCOUNTER 2024-04-23 14:16 | Emergency (ER) | payer MEDICARE, MEDICAID ==
[2024-04-23 15:33] LABS: BASOPHILS PERCENT AUTO 0.3 % (0.0-1.0); EOSINOPHILS PERCENT AUTO 0.8 % (1.0-3.0); HEMATOCRIT 40.6 % (37.0-47.0); HEMOGLOBIN 13.6 g/dL (12.0-16.0); LYMPHOCYTES PERCENT AUTO 20.5 % (20.5-50.1); MEAN CORPUSCULAR HGB CONC 33.5 g/dL (33.0-35.0); MEAN CORPUSCULAR VOLUME 95.5 fL (80-100); MONOCYTES PERCENT AUTO 12.8 % (2-8); NEUTROPHILS PERCENT AUTO 65.6 % (42.2-75.2); PLATELET COUNT,PLT 226 10^3/uL (150-450); RED BLOOD CELL COUNT 4.25 10^6/uL (4.2-5.4); WHITE BLOOD CELL COUNT,WBC 3.8 10^3/uL (5.0-10.0)
[2024-04-23 15:58] LABS: A/G RATIO 1.1; ALBUMIN 3.8 g/dL (3.4-5.0); ANION GAP 11.9 mEq/L (7-13); BILIRUBIN TOTAL 0.3 mg/dL (0.2-1.0); BUN/CREATININE RATIO 18.6 (No establ ref range); CALCIUM 10.2 mg/dL (8.5-10.1); CREATININE 0.7 mg/dL (0.55-1.02); EST CRCL DRUG DOSING (CG) 99.01 mL/min; POTASSIUM,K 4.9 mmol/L (3.5-5.1); PROTEIN TOTAL,TP 7.2 g/dL (6.4-8.2); TSH ULTRASENSITIVE 1.15 uIU/mL (0.36-3.74)
[2024-04-23 17:43] LABS: APPEARANCE,URINE CLOUDY (CLEAR); BILIRUBIN,URINE NEGATIVE (NEGATIVE); GLUCOSE,URINE NEGATIVE (NEGATIVE); KETONES,URINE NEGATIVE (NEGATIVE); LEUKOCYTE ESTERASE,URINE NEGATIVE (NEGATIVE); NITRITE,URINE POSITIVE (NEGATIVE); OCCULT BLOOD,URINE TRACE-LYSED (NEGATIVE); PH,URINE 8.5 (5.0-9.0); PROTEIN,URINE NEGATIVE (NEGATIVE); UROBILINOGEN,URINE 0.2 mg/dL (0.2-1.0)
[2024-04-23 17:44] LABS: AMPHETAMINES,URINE NEGATIVE (NEGATIVE); BARBITURATES,URINE NEGATIVE (NEGATIVE); BENZODIAZEPINE,URINE NEGATIVE (NEGATIVE); COLOR,URINE LIGHT YELLOW (YELLOW); MDMA (ECSTASY), URINE NEGATIVE (NEGATIVE); METHADONE,URINE NEGATIVE (NEGATIVE); METHAMPHETAMINES,URINE NEGATIVE (NEGATIVE); OPIATES,URINE NEGATIVE (NEGATIVE); OXYCODONE,URINE NEGATIVE (NEGATIVE); PHENCYCLIDINE,URINE NEGATIVE (NEGATIVE); TCA,URINE NEGATIVE (NEGATIVE)
[2024-04-23 18:02] LABS: AMORPHOUS SEDIMENT,URINE MODERATE /HPF (NOT SEEN)
[2024-04-23 18:03] LABS: TRIPLE PHOSPHATE CRYSTALS,UR MANY /HPF (NOT SEEN)
[2024-04-23 18:04] LABS: BACTERIA,URINE FEW /HPF (0-FEW/HPF); EPITHELIAL CELLS,URINE FEW /HPF (NOT SEEN); WBC,URINE 0-5 /HPF (0-5/HPF)
[2024-04-23] MEDS: Sulfamethoxazole/Trimethoprim 800-160 MG Tab PO ONE (19:52)
== END 2024-04-23 22:42 ==
LOC: DL.ED 14:16
DX: R45.851 Suicidal ideations (principal); N39.0 Urinary tract infection, site not specified; I10 Essential (primary) hypertension; Z90.89 Acquired absence of other organs; Z88.5 Allergy status to narcotic agent; Z88.8 Allergy status to other drugs, medicaments and biological substances; Z91.040 Latex allergy status; Z91.018 Allergy to other foods; Z91.041 Radiographic dye allergy status; Z79.899 Other long term (current) drug therapy
CPT/HCPCS: 36415; 80053; 80143; 80164; 80179; 80305; 81001; 84443; 85025; 87086; 93005; 93010; 99285; A9270

== ENCOUNTER 2025-03-07 11:32 | Observation (INO) | payer MEDICARE, MEDICAID ==
[2025-03-07] MEDS ORDERED: Sodium Chloride 0.9% 10 ML Syringe FLUSH PRN (12:15)
[2025-03-07 12:32] LABS: BASOPHILS PERCENT AUTO 0.2 % (0.0-1.0); EOSINOPHILS PERCENT AUTO 0.6 % (1.0-3.0); LYMPHOCYTES PERCENT AUTO 15.9 % (20.5-50.1); MONOCYTES PERCENT AUTO 14.1 % (2-8); NEUTROPHILS PERCENT AUTO 69.2 % (42.2-75.2); PLATELET COUNT,PLT 216 10^3/uL (150-450); RED BLOOD CELL COUNT 3.99 10^6/uL (4.2-5.4); WHITE BLOOD CELL COUNT,WBC 5.0 10^3/uL (5.0-10.0)
[2025-03-07] MEDS: Levofloxacin/Dextrose 5%-Water 750 MG in Premix Bag 1 BAG IV ONE (12:41)
[2025-03-07 12:57] LABS: ALANINE AMINOTRANSFERASE,ALT 22.0 U/L (14-59); ASPARTATE AMNIOTRANSFERASE,AST 23.0 U/L (15-37); BILIRUBIN TOTAL 0.2 mg/dL (0.2-1.0); BLOOD UREA NITROGEN,BUN 13.0 mg/dL (7-18); CARBON DIOXIDE,CO2 29.0 mmol/L (21-32); CHLORIDE,CL 105.0 mmol/L (98-107); CREATININE 0.51 mg/dL (0.55-1.02); EST CRCL DRUG DOSING (CG) 113.65 mL/min; GLUCOSE RANDOM 128.0 mg/dL (70-99); POTASSIUM,K 5.0 mmol/L (3.5-5.1); PROTEIN TOTAL,TP 6.8 g/dL (6.4-8.2); SODIUM,NA 141.0 mmol/L (136-145)
[2025-03-07 12:58] LABS: LACTIC ACID 0.9 mmol/L (0.4-2.0)
[2025-03-07 13:05] LABS: A/G RATIO 0.84; ESTIMATED GFR 119.0 mL/min (>=60)
[2025-03-07 13:25] LABS: APPEARANCE,URINE TURBID (CLEAR); GLUCOSE,URINE NEGATIVE (NEGATIVE); OCCULT BLOOD,URINE TRACE-INTACT (NEGATIVE)
[2025-03-07 13:37] LABS: EPITHELIAL CELLS,URINE FEW /HPF (NOT SEEN)
[2025-03-07] MEDS: Magnesium Sulfate 2 GM/50 mL 2 GM in Premix Bag 1 BAG IV ONE (18:14)
[2025-03-07] MEDS ORDERED: NORETHINDRONE ETHIN ESTRADIOL PO SCH (19:45)
[2025-03-07] MEDS ORDERED: POTASSIUM CHLORIDE PO SCH (19:45)
[2025-03-07] MEDS ORDERED: SODIUM CHLORIDE PO SCH (19:45)
[2025-03-07] MEDS ORDERED: [UNRECOGNIZED DRUG - OTHER] PO SCH (19:45)
[2025-03-07] MEDS ORDERED: SODIUM BICARBONATE PO SCH (19:45)
[2025-03-07 21:23] LABS: APPEARANCE,URINE TURBID (CLEAR); GLUCOSE,URINE NEGATIVE (NEGATIVE); OCCULT BLOOD,URINE MODERATE (NEGATIVE)
[2025-03-07 21:26] LABS: FOLIC ACID 16.2 ng/mL (8.6-58.9); T4 FREE 0.9 ng/dL (0.76-1.46); TSH ULTRASENSITIVE 1.44 uIU/mL (0.36-3.74)
[2025-03-07 22:07] LABS: EPITHELIAL CELLS,URINE FEW /HPF (NOT SEEN)
[2025-03-08] MEDS: Heparin Sodium 5,000 Units/ML Vial SUBCUT SCH (02:31)
[2025-03-08 06:02] LABS: BASOPHILS PERCENT AUTO 0.2 % (0.0-1.0); EOSINOPHILS PERCENT AUTO 0.2 % (1.0-3.0); LYMPHOCYTES PERCENT AUTO 9.0 % (20.5-50.1); MONOCYTES PERCENT AUTO 10.8 % (2-8); NEUTROPHILS PERCENT AUTO 79.8 % (42.2-75.2); PLATELET COUNT,PLT 219 10^3/uL (150-450); RED BLOOD CELL COUNT 4.26 10^6/uL (4.2-5.4); WHITE BLOOD CELL COUNT,WBC 6.2 10^3/uL (5.0-10.0)
[2025-03-08 06:22] LABS: BLOOD UREA NITROGEN,BUN 9.0 mg/dL (7-18); CARBON DIOXIDE,CO2 26.0 mmol/L (21-32); CHLORIDE,CL 101.0 mmol/L (98-107); CREATININE 0.46 mg/dL (0.55-1.02); EST CRCL DRUG DOSING (CG) 126.01 mL/min; GLUCOSE RANDOM 131.0 mg/dL (70-99); PHOSPHORUS 2.2 mg/dL (2.6-4.7); POTASSIUM,K 4.3 mmol/L (3.5-5.1); SODIUM,NA 138.0 mmol/L (136-145)
[2025-03-08 06:23] LABS: ESTIMATED GFR 122.0 mL/min (>=60)
[2025-03-08] MEDS ORDERED: Phosphorus #1 250 MG Tab PO SCH (09:00)
[2025-03-08] MEDS: Magnesium Sulfate 2 GM/50 mL 2 GM in Premix Bag 1 BAG IV ONE (10:10)
[2025-03-08] MEDS ORDERED: FLUOCINONIDE TOP SCH (10:45)
[2025-03-08] MEDS ORDERED: Fluticasone NASAL Spray 16 GM Bottle NAS PRN (10:55)
[2025-03-08] MEDS: TACROLIMUS PO SCH (11:37)
[2025-03-08] MEDS: PAROXETINE PO SCH (11:39)
[2025-03-08] MEDS: Non-Formulary Medication 1 Each (Calcium Acetate [Phoslo] 667 MG Cap) PO SCH (12:19)
[2025-03-08] MEDS: METHYLPHENIDATE HCL 10 MG PO SCH (12:20)
[2025-03-08] MEDS ORDERED: TACROLIMUS TOP SCH (14:00)
[2025-03-08] MEDS ORDERED: Levofloxacin/Dextrose 5%-Water 750 MG in Premix Bag 1 BAG IV SCH (18:00)
[2025-03-08] MEDS ORDERED: TACROLIMUS PO SCH (21:00)
[2025-03-08] MEDS ORDERED: Sennosides/Docusate Sodium 50-8.6 MG Tab PO SCH (21:00)
[2025-03-08] MEDS ORDERED: Carboxymethylcellulose Sodium 1% Ophth Gel 0.4 ML UD Box of 30 EYEBOTH SCH (21:00)
[2025-03-08] MEDS ORDERED: Non-Formulary Medication 1 Each (Tacrolimus 1 MG Capsule) PO SCH (21:00)
[2025-03-08] MEDS ORDERED: Non-Formulary Medication 1 Each (Divalproex Sodium [Divalproex Sodium Er] 500 MG Tab.Er.24 PO SCH (21:00)
[2025-03-09] MEDS ORDERED: Non-Formulary Medication 1 Each (Tacrolimus 1 MG Capsule) PO SCH (09:00)
[2025-03-09] MEDS ORDERED: AZATHIOPRINE 50 MG PO SCH (09:00)
[2025-03-09] MEDS ORDERED: NORETHINDRONE ETHIN ESTRADIOL PO SCH (09:00)
[2025-03-09] MEDS ORDERED: Non-Formulary Medication 1 Each (Divalproex Sodium [Divalproex Sodium Er] 500 MG Tab.Er.24 PO SCH (09:00)
[2025-03-11 05:43] LABS: VALPROIC ACID,FREE 11 ug/mL (7-23); VALPROIC ACID,PERCENT FREE 16 % (5-18); VALPROIC ACID,TOTAL 72 ug/mL (50-125)
[2025-03-11 12:47] LABS: IONIZED CA@PH7.4 1.34 mmol/L (1.09-1.30); IONIZED CALCIUM 1.26 mmol/L (1.09-1.30)
== END 2025-03-08 14:00 | disposition home or self-care (01) ==
LOC: DL.ED 11:32 → DL.MS 18:32
PROVIDERS: ADMIT Internal Medicine; ATTEND Internal Medicine
DX: G82.20 Paraplegia, unspecified (principal); E83.42 Hypomagnesemia; E83.52 Hypercalcemia; F32.A Depression, unspecified; F43.10 Post-traumatic stress disorder, unspecified; F60.9 Personality disorder, unspecified; E66.9 Obesity, unspecified; I10 Essential (primary) hypertension; K59.09 Other constipation; R56.9 Unspecified convulsions; D50.9 Iron deficiency anemia, unspecified; Z94.0 Kidney transplant status; Z88.5 Allergy status to narcotic agent; Z88.8 Allergy status to other drugs, medicaments and biological substances; Z79.82 Long term (current) use of aspirin; Z91.040 Latex allergy status; Z91.018 Allergy to other foods; Z79.899 Other long term (current) drug therapy; W19.XXXA Unspecified fall, initial encounter
CPT/HCPCS: 36415; 72100; 73502; 80048; 80053; 80164; 80165; 81001; 82140; 82330; 82607; 82746; 83605; 83735; 84100; 84145; 84439; 84443; 85025; 86592; 87086; 87088; 87186; 97161; 97165; A9270; J1956; J3475; J7030

== ENCOUNTER 2025-04-17 14:42 | Emergency (ER) | payer MEDICARE, MEDICAID ==
[2025-04-17 15:49] LABS: BASOPHILS PERCENT AUTO 0.2 % (0.0-1.0); EOSINOPHILS PERCENT AUTO 0.7 % (1.0-3.0); LYMPHOCYTES PERCENT AUTO 17.2 % (20.5-50.1); MONOCYTES PERCENT AUTO 11.7 % (2-8); NEUTROPHILS PERCENT AUTO 70.2 % (42.2-75.2); PLATELET COUNT,PLT 228 10^3/uL (150-450); RED BLOOD CELL COUNT 4.20 10^6/uL (4.2-5.4); WHITE BLOOD CELL COUNT,WBC 5.7 10^3/uL (5.0-10.0)
[2025-04-17 16:10] LABS: A/G RATIO 0.9; ALANINE AMINOTRANSFERASE,ALT 45 U/L (14-59); ASPARTATE AMNIOTRANSFERASE,AST 40 U/L (15-37); BILIRUBIN TOTAL 0.4 mg/dL (0.2-1.0); BLOOD UREA NITROGEN,BUN 12 mg/dL (7-18); CARBON DIOXIDE,CO2 28 mmol/L (21-32); CHLORIDE,CL 102 mmol/L (98-107); CREATININE 0.54 mg/dL (0.55-1.02); GLUCOSE RANDOM 104 mg/dL (70-99); POTASSIUM,K 4.3 mmol/L (3.5-5.1); PROTEIN TOTAL,TP 7.5 g/dL (6.4-8.2); SODIUM,NA 140 mmol/L (136-145)
[2025-04-17 16:14] LABS: ESTIMATED GFR 118 mL/min (>=60)
[2025-04-17 16:21] LABS: APPEARANCE,URINE SLIGHTLY CLOUDY (CLEAR); GLUCOSE,URINE NEGATIVE (NEGATIVE); OCCULT BLOOD,URINE MODERATE (NEGATIVE)
[2025-04-17 16:37] LABS: EPITHELIAL CELLS,URINE FEW /HPF (NOT SEEN)
[2025-04-17] MEDS: Take Home: Ondansetron 4 MG Tab.DIS, 5 Tab Pack PO ONE (17:58)
== END 2025-04-17 18:10 | disposition home or self-care (01) ==
LOC: DL.ED 14:42
DX: K52.9 Noninfective gastroenteritis and colitis, unspecified (principal); I12.9 Hypertensive chronic kidney disease with stage 1 through stage 4 chronic kidney disease, or unspecified chronic kidney disease; N18.9 Chronic kidney disease, unspecified; Z79.899 Other long term (current) drug therapy; Z79.82 Long term (current) use of aspirin; Z91.041 Radiographic dye allergy status; Z91.018 Allergy to other foods; Z88.8 Allergy status to other drugs, medicaments and biological substances; Z91.040 Latex allergy status; Z88.6 Allergy status to analgesic agent; Z88.5 Allergy status to narcotic agent
CPT/HCPCS: 36415; 74018; 80053; 81001; 83605; 85025; 86140; 99284; C1758; Q0162